=== PATIENT | male | born 1985 ===

== ENCOUNTER 2017-05-05 10:13 | Emergency (ER) | payer MEDICAID, OTHER ==
[2017-05-05 10:14] VITALS: BMI 38.7
[2017-05-05 10:18] VITALS: BP 148/92; PULSE 95; RESP 18; TEMP 99.2; O2SAT 96
[2017-05-05] MEDS ORDERED: Oxycodone/Acetaminophen 5/325 mg Tab PO STA (10:30)
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
--- NOTE | 2017-05-05 11:31 | RAD ---
PROCEDURE: Radiographs of the Left Shoulder HISTORY: Pain s/p fall COMPARISON: No prior. FINDINGS: BONES: Bone alignment and mineralization are normal. No acute fracture. JOINTS: Glenohumeral and acromioclavicular joints preserved. No osteoarthritis. SOFT TISSUES: Normal. OTHER FINDINGS: None. IMPRESSION: No acute fracture or dislocation.
--- NOTE | 2017-05-05 11:35 | RAD ---
PROCEDURE: Radiographs of the left humerus. HISTORY: pain s/p fall COMPARISON: None. FINDINGS: BONES: Bone alignment and mineralization are normal. No acute fracture or focal lesion. SOFT TISSUES: Normal. OTHER FINDINGS: None. IMPRESSION: No acute fracture or dislocation.
== END 2017-05-05 11:56 | disposition home or self-care (01) ==
LOC: MERGE 10:13 → H.ER 10:13
DX: S43.402A Unspecified sprain of left shoulder joint, initial encounter (principal); W19.XXXA Unspecified fall, initial encounter; Y99.0 Civilian activity done for income or pay

== ENCOUNTER 2017-11-09 17:21 | Inpatient (IN) | payer SELFPAY ==
[2017-11-09 17:21] VITALS: BMI 38.7
[2017-11-09] MEDS ORDERED: DiphenhydrAMINE 50 mg/ml Inj IVP STA (17:47)
[2017-11-09] MEDS ORDERED: Sodium Chloride 0.9% 1,000 ML IV STA (17:52)
[2017-11-09] MEDS ORDERED: DiphenhydrAMINE 50 mg/ml Inj ONE (17:53)
--- NOTE | 2017-11-09 18:08 | RAD ---
HISTORY: schizophrenia COMPARISON: No prior. FINDINGS: LUNGS: No active pulmonary disease. PLEURA: No significant pleural effusion identified, no pneumothorax apparent. CARDIOVASCULAR: Normal. OSSEOUS STRUCTURES: No significant abnormalities. VISUALIZED UPPER ABDOMEN: Normal. OTHER FINDINGS: None. IMPRESSION: No active disease.
[2017-11-09 18:13] LABS: BASO # 0.2 K/uL (0.0-0.2); EOS # 0.3 K/uL (0.0-0.7); EOS % 1.8 % (0.0-4.0); HEMOGLOBIN 13.5 g/dL (12.0-18.0); LYMPH # 4.2 K/uL (1.0-4.3); LYMPH % 25.2 % (20.0-40.0); MEAN CELL VOLUME 84.5 fl (80.0-94.0); MEAN CORPUSCULAR HEMOGLOBIN 28.4 pg (27.0-31.0); MEAN CORPUSCULAR HGB CONC 33.6 g/dL (33.0-37.0); MEAN PLATELET VOLUME 7.8 fl (7.2-11.7); MONO # 0.9 K/uL (0.0-0.8); MONO % 5.1 % (0.0-10.0); NEUT # 11.1 K/uL (1.8-7.0); NEUT % 66.9 % (50.0-75.0); RBC 4.73 Mil/uL (4.40-5.90); RED CELL DISTRIBUTION WIDTH 14.5 % (11.5-14.5); WHITE BLOOD COUNT 16.7 K/uL (4.8-10.8)
[2017-11-09 18:22] LABS: ACETAMINOPHEN < 10.0 ug/ml (10.0-30.0); SALICYLATE < 1.0 mg/dl
[2017-11-09 18:23] LABS: ALB/GLOB RATIO 1.3 (1.0-2.1); ALBUMIN 4.5 g/dL (3.5-5.0); ALT/SGPT 58 U/L (21-72); AST/SGOT 41 U/L (17-59); BLOOD UREA NITROGEN 10 mg/dl (9-20); CALCIUM 9.7 mg/dL (8.4-10.2); GFR AFRICAN-AMERICAN > 60; GFR NON-AFRICAN AMERICAN > 60
[2017-11-09 18:27] LABS: VALPROIC ACID < 10.0 ug/mL (50.0-100.0)
[2017-11-09 18:31] LABS: PARTIAL THROMBOPLASTIN TIME 29.9 Seconds (25.6-37.1)
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
[2017-11-09 21:56] LABS: BARBITURATES, UR NEGATIVE (NEGATIVE); BENZODIAZEPINES, UR NEGATIVE (NEGATIVE); OPIATES, UR NEGATIVE (NEGATIVE); PHENCYCLIDINE, UR NEGATIVE (NEGATIVE)
[2017-11-09] MEDS ORDERED: Sodium Chloride 0.9% 1,000 ML IV SCH (22:15)
[2017-11-10 00:33] VITALS: RESP 18
[2017-11-10] MEDS: Sodium Chloride 0.9% 1,000 ML IV SCH ×2 (04:09→08:56)
[2017-11-10 06:46] LABS: BASO # 0.1 K/uL (0.0-0.2); BASO % 0.8 % (0.0-2.0); EOS # 0.6 K/uL (0.0-0.7); EOS % 4.6 % (0.0-4.0); HEMOGLOBIN 12.4 g/dL (12.0-18.0); LYMPH # 2.7 K/uL (1.0-4.3); LYMPH % 21.8 % (20.0-40.0); MEAN CELL VOLUME 84.3 fl (80.0-94.0); MEAN CORPUSCULAR HEMOGLOBIN 28.4 pg (27.0-31.0); MEAN CORPUSCULAR HGB CONC 33.7 g/dL (33.0-37.0); MEAN PLATELET VOLUME 7.8 fl (7.2-11.7); MONO # 0.8 K/uL (0.0-0.8); MONO % 6.5 % (0.0-10.0); NEUT # 8.2 K/uL (1.8-7.0); NEUT % 66.3 % (50.0-75.0); NRBC % 0.1 % (0.0-0.0); RBC 4.35 Mil/uL (4.40-5.90); RED CELL DISTRIBUTION WIDTH 14.9 % (11.5-14.5); WHITE BLOOD COUNT 12.3 K/uL (4.8-10.8)
[2017-11-10 07:02] LABS: BLOOD UREA NITROGEN 15 mg/dl (9-20); CALCIUM 8.8 mg/dL (8.4-10.2); GFR AFRICAN-AMERICAN > 60; GFR NON-AFRICAN AMERICAN > 60
[2017-11-10] MEDS ORDERED: Enoxaparin 60 mg Syringe SC SCH (09:00)
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
--- NOTE | 2017-11-10 11:05 | CP.PCM.DIS ---
Provider - Provider Date of Admission: 11/09/17 21:09 Attending physician: Rosalia Nguyen DO Primary care physician: none Consults: psychiatry consult Time Spent in preparation of Discharge (in minutes): 10 Hospital Course - Lab Results Lab Results: Most Recent Lab Values WBC 12.3 K/uL (4.8-10.8) H 11/10/17 05:30 RBC 4.35 Mil/uL (4.40-5.90) L 11/10/17 05:30 Hgb 12.4 g/dL (12.0-18.0) 11/10/17 05:30 Hct 36.7 % (35.0-51.0) 11/10/17 05:30 MCV 84.3 fl (80.0-94.0) 11/10/17 05:30 MCH 28.4 pg (27.0-31.0) 11/10/17 05:30 MCHC 33.7 g/dL (33.0-37.0) 11/10/17 05:30 RDW 14.9 % (11.5-14.5) H 11/10/17 05:30 Plt Count 286 K/uL (130-400) 11/10/17 05:30 MPV 7.8 fl (7.2-11.7) 11/10/17 05:30 Neut % (Auto) 66.3 % (50.0-75.0) 11/10/17 05:30 Lymph % (Auto) 21.8 % (20.0-40.0) 11/10/17 05:30 Frontier % (Auto) 6.5 % (0.0-10.0) 11/10/17 05:30 Eos % (Auto) 4.6 % (0.0-4.0) H 11/10/17 05:30 Baso % (Auto) 0.8 % (0.0-2.0) 11/10/17 05:30 Neut # (Auto) 8.2 K/uL (1.8-7.0) H 11/10/17 05:30 Lymph # (Auto) 2.7 K/uL (1.0-4.3) 11/10/17 05:30 Frontier # (Auto) 0.8 K/uL (0.0-0.8) 11/10/17 05:30 Eos # (Auto) 0.6 K/uL (0.0-0.7) 11/10/17 05:30 Baso # (Auto) 0.1 K/uL (0.0-0.2) 11/10/17 05:30 PT 11.0 Seconds (9.8-13.1) 11/09/17 18:07 INR 1.0 (0.9-1.2) 11/09/17 18:07 APTT 29.9 Seconds (25.6-37.1) 11/09/17 18:07 Sodium 140 mmol/l (132-148) 11/10/17 05:30 Potassium 4.0 MMOL/L (3.6-5.0) 11/10/17 05:30 Chloride 103 mmol/L (98-107) 11/10/17 05:30 Carbon Dioxide 25 mmol/L (22-30) 11/10/17 05:30 Anion Gap 16 (10-20) 11/10/17 05:30 BUN 15 mg/dl (9-20) 11/10/17 05:30 Creatinine 0.7 mg/dl (0.8-1.5) L 11/10/17 05:30 Est GFR ( Amer) > 60 11/10/17 05:30 Est GFR (Non-Af Amer) > 60 11/10/17 05:30 POC Glucose (mg/dL) 113 mg/dL (65-110) H 11/09/17 17:49 Random Glucose 97 mg/dL (75-110) 11/10/17 05:30 Calcium 8.8 mg/dL (8.4-10.2) 11/10/17 05:30 Phosphorus 3.2 mg/dl (2.5-4.5) 11/09/17 18:07 Magnesium 1.9 MG/DL (1.6-2.3) 11/09/17 18:07 Total Bilirubin 0.5 mg/dl (0.2-1.3) 11/09/17 18:07 AST 41 U/L (17-59) 11/09/17 18:07 ALT 58 U/L (21-72) 11/09/17 18:07 Alkaline Phosphatase 99 U/L (38-126) 11/09/17 18:07 Total Creatine Kinase 211 U/L (55-170) H 11/10/17 05:30 Troponin I < 0.0120 ng/mL (0.00-0.120) 11/09/17 18:07 Total Protein 8.1 G/DL (6.3-8.2) 11/09/17 18:07 Albumin 4.5 g/dL (3.5-5.0) 11/09/17 18:07 Globulin 3.5 gm/dL (2.2-3.9) 11/09/17 18:07 Albumin/Globulin Ratio 1.3 (1.0-2.1) 11/09/17 18:07 Salicylates < 1.0 mg/dl 11/09/17 18:07 Urine Opiates Screen Negative (NEGATIVE) 11/09/17 21:28 Urine Methadone Screen Negative (NEGATIVE) 11/09/17 21:28 Acetaminophen < 10.0 ug/ml (10.0-30.0) L 11/09/17 18:07 Ur Barbiturates Screen Negative (NEGATIVE) 11/09/17 21:28 Valproic Acid < 10.0 ug/mL (50.0-100.0) L 11/09/17 18:07 Ur Phencyclidine Scrn Negative (NEGATIVE) 11/09/17 21:28 Ur Amphetamines Screen Negative (NEGATIVE) 11/09/17 21:28 U Benzodiazepines Scrn Negative (NEGATIVE) 11/09/17 21:28 U Oth Cocaine Metabols Negative (NEGATIVE) 11/09/17 21:28 U Cannabinoids Screen Negative (NEGATIVE) 11/09/17 21:28 Alcohol, Quantitative < 10 mg/dl (0-10) 11/09/17 18:07 - Hospital Course Hospital Course: 32 year old male with PMH of schizophrenia presented with worsening 2 day history of auditory hallucinations, constant, worsening, not ameliorated by medications he has been on. Patient took 12 tabs of Ambien last night and 4 tabs of Risperdal prior to arrival to ED today. Voices were telling him to stab himself in the throat, however he states the voices have since subsided. Pt also reports Ambien "works much better, relaxes my head." No PMD, receives medications at a Psych clinic in [facility] and [facility] [place]. In ED, pt was tachycardic, mildly tremulous, mild diaphoresis, not hyperthermic. Per Poison Control,he was placed under observation in telemetry and given Ativan PRN Pt is calm at this time, comfortable , hemodynamically stable psych consulted patient to be transferred to psych unit for management 1.Antipsychotic Overdose, Risperdal Concern for Neuroleptic Malignant Syndrome pt initially presented with Risperdal overdose, mild muscle "tightness" per ED, diaphoresis, stable BP Poison control recommended Ativan and monitoring overnight at present stable. Medically cleared for discharge to psych unit 2.Mild Rhabdomyolysis CK 243 on arrival, trend given IVF 3. Schizophrenia psych consult appreciated will d/c to psych Discharge Exam - Head Exam Head Exam: ATRAUMATIC, NORMOCEPHALIC - Eye Exam Eye Exam: EOMI, Normal appearance, PERRL Pupil Exam: NORMAL ACCOMODATION - ENT Exam ENT Exam: Mucous Membranes Moist, Normal Exam - Neck Exam Neck exam: Full Rom, Normal Inspection - Respiratory Exam Respiratory Exam: Clear to PA & Lateral, NORMAL BREATHING PATTERN. absent: Rales, Rhonchi, Wheezes - Cardiovascular Exam Cardiovascular Exam: REGULAR RHYTHM, RRR, +S1, +S2. absent: JVD - GI/Abdominal Exam GI & Abdominal Exam: Normal Bowel Sounds, Soft. absent: Guarding, Rebound, Tenderness - Rectal Exam Rectal Exam: Deferred - Extremities Exam Extremities exam: normal capillary refill, normal inspection, pedal pulses present - Back Exam Back exam: NORMAL INSPECTION - Neurological Exam Neurological exam: Alert, CN II-XII Intact, Oriented x3, Reflexes Normal - Psychiatric Exam Psychiatric exam: Anxious - Skin Skin Exam: Dry, Intact, Normal Color, Warm Discharge Plan - Follow Up Plan Condition: STABLE Disposition: DISCHARGE TO PSYCH HOSPITAL Patient education suggested?: Yes Instructions: Schizophrenia (DC)
[2017-11-10 12:08] VITALS: BP 104/66; PULSE 79; TEMP 98.7
[2017-11-10 15:47] VITALS: O2SAT 96
--- NOTE | 2017-11-10 17:45 | CARD ---
APPROVED REPORT EKG Measurement Heart [id number] MI 130P51 [id number] <Conclusion> Sinus tachycardia Possible Inferior infarct, age undetermined Abnormal ECG
--- NOTE | 2017-11-10 17:51 | CARD ---
APPROVED REPORT EKG Measurement Heart [id number] PA 140P43 [id number] <Conclusion> Normal sinus rhythm Normal ECG
== END 2017-11-10 14:30 | DRG 917 ==
LOC: H.ER 17:21 → H.ERHOLD 21:09 → H.TEL 11-10 00:11
PROVIDERS: ADMIT Student in an Organized Health Care Education/Training Program; ATTEND Student in an Organized Health Care Education/Training Program
DX: T43.501A Poisoning by unspecified antipsychotics and neuroleptics, accidental (unintentional), initial encounter (principal); G21.0 Malignant neuroleptic syndrome; M62.82 Rhabdomyolysis; F20.9 Schizophrenia, unspecified; F31.9 Bipolar disorder, unspecified; F41.9 Anxiety disorder, unspecified; F43.10 Post-traumatic stress disorder, unspecified; E78.5 Hyperlipidemia, unspecified; E78.00 Pure hypercholesterolemia, unspecified; G47.00 Insomnia, unspecified; Y92.009 Unspecified place in unspecified non-institutional (private) residence as the place of occurrence of the external cause; Z87.891 Personal history of nicotine dependence

== ENCOUNTER 2017-11-10 15:18 | Inpatient (IN) | payer OTHER ==
[2017-11-10 15:32] VITALS: BMI 44.9
[2017-11-10] MEDS ORDERED: Magnesium Hydroxide Susp 30 ml UD PO PRN (17:07)
[2017-11-10] MEDS ORDERED: DiphenhydrAMINE 50 mg/ml Inj IM PRN (17:07)
[2017-11-10] MEDS ORDERED: Alum-Mag Hydrox-Simethicone Susp (30 mL) PO PRN (17:07)
[2017-11-10] MEDS ORDERED: Divalproex 500 mg DR(BID formulation) PO SCH (17:30)
--- NOTE | 2017-11-10 18:27 | PCM.BM ---
<Angelo Espino - Last Filed: 11/10/17 18:25> Treatment Plan Problems - Problems identified on initial assessmt Hopelessness/Helplessness Date Initiated: 11/10/17 Time Initiated: 18:25 Assessment reference: NA Status: Active Treatment assets and liabiliti Patient Assests: adapts well, cooperative, motivated, self-reliant, ADL independent Patient Liabilities: medical problems, language/speech - Milieu Protocol Maintain good personal hygiene: every shift Encourage regular showers, every shift Remind patient to perform daily oral care, every shift Assist patient to perform ADL's Maintain personal safety: every shift Educate patient to report safety concerns to staff, every shift Monitor environment for contraband/sharps Medication safety: Monitor for expected outcome, potential side effects: every shift, Assess barriers to learning: every shift, Assess readiness for medication education: every shift <Chris Curtis - Last Filed: 11/12/17 17:37> Family Contact Family involvement: Family/SO is involved Family contact: Patient agrees to contact, Family has been contacted by patient Family contact name: Effie Medina - Sister [phone] Family contacted how many times per week?: 3 - Goals for Treatment Patient goals for treatment: Pt would like staff to adjust his medications to limit the intrusiveness of the images he sees. Pt is also very anxious and would like help with sleep. Discharge/Continuing Care - Education Needs Education Needs: Patient Medication, Patient Diagnosis/Disease Process, Patient Coping Skills, Patient Aftercare Safety Plan - Discharge Discharge Criteria: Tolerates medication w/o severe side effects, Free of Suicidal thoughts, Free of paranoid thoughts, Free of agitation, Normal sleep pattern, Reduction of target symptoms Discharge to:: Home, With Family <Marisela Saeed - Last Filed: 11/13/17 16:10> Family Contact - Outside Agency Agency 1 Care involvment: Following patient during stay, Information-sharing, Other Agency contact name: [facility] (OPS) Agency contact number: [phone] - Goals for Treatment Patient's family/SO goals for treatment: Patient to continue stabilization on 3NP through medication management and group/supportive therapy. Patient to be encouraged to attend groups regularly to promote self-awareness,compliance and improve insight, coping skills and self-esteem. Patient to be provided with referral for appropriate level of aftercare to reduce risk of future hospitalizations and ensure safety in the community. Discharge/Continuing Care - Treatment Team Participation Patient/Family/SO Statement: 11/13/17 16:11 Patient attended this mornings tx team and was able to engage in discussion regarding precursors to hospitalization and progress on 3NP. Pt. reported some improvement in anxiety and VH since admission but expressed experiencing disturbing/violent VH in the morning and in the evening. Pt. continues to deny AH. Pt. reported passive SI without plan or intent, explaining "I'm just frustrated with my illness." Pt. reported being inconsistently compliant with medications secondary to financial burden and "sometimes being too sick." Pt. was observed to be having bizarre, spastic hand movements through-out interaction. Pt. reported feeling restless and describing the movement as involuntary. Pts explained that these movement have not always been present but have become normal for patient, especially while taking medications. Psychoeducation regarding benefits of changing antipsychotics to better target VH and possibly address involuntary hand movements discussed at length. Pt. reported having been on 25mg of Seroquel in the past with minimal improvements. Benefits of a higher dose of Seroquel to replace current Abilify was discussed. Pt. agreeable. Pt. mostly withdrawn and isolative on 3NP but is cooperative and pleasant with staff. Was Patient/Family/SO present at Treatment Team Meeting: Yes <Alex Platt - Last Filed: 11/16/17 12:05> - Diagnosis (1) Hallucination Status: Acute Interventions: pharmacotherapy 11/16/17 12:05
[2017-11-10] MEDS: Divalproex 500 mg ER (ONCE DAILY formulation) PO SCH (18:28)
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
[2017-11-11 08:54] LABS: T4 6.87 ug/dl (5.5-11.0)
[2017-11-11] MEDS: Divalproex 500 mg ER (ONCE DAILY formulation) PO SCH ×2 (08:59→18:00)
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
[2017-11-12] MEDS: Divalproex 500 mg ER (ONCE DAILY formulation) PO SCH ×2 (09:12→17:16)
--- NOTE | 2017-11-12 17:00 | PCM.PYCHPN ---
Psychiatric Progress Note - Psychiatric Progress Note Patient seen today, length of contact: pt seen and evaluated . Patient Chief Complaint: Pt has remained very anxious and paranoid ,pacing and internally preoccupied and cant sleep at night and remains with poor insight and need further stabilization. Medication Change: Yes (will in rease ambien to 10 mg hs) Mental Status Examination - Cognitive Function Orientation: Person, Place - Mood Mood: Depressed, Anxious - Affect Affect: Flat - Formal Thought Process Formal Thought Process: Hallucinations, Paranoia, Flight of ideas Goal/Treatment Plan - Goal/Treatment Plan Progress Toward Problem(s) and Goals/Treatment Plan: Will further titrate abilify to 10 mg hs to stabilize the mood and titrate depakote by checking VPA level and engage pt in therapy Medical consult to address HTN and high cholesterol and other medical issues.
[2017-11-13] MEDS: Divalproex 500 mg ER (ONCE DAILY formulation) PO SCH ×2 (09:24→17:26)
--- NOTE | 2017-11-13 15:42 | PCM.PYCHPN ---
Psychiatric Progress Note - Psychiatric Progress Note Patient seen today, length of contact: pt evaluated discussed with team chart reviewed Patient Chief Complaint: I still have the bad visions when I wake up and when I go to sleep Problems Identified/Issues Discussed: pt evaluated with treatment team, presenting with anxious mood and affect, relates that to the fact that he continues to experience terrifying visual experiences, of people trying to hurt him, pt reported poor sleep with early insomnia, also reported increased anxiety possible akathisia with abilify discussed with pt discontinuing abilify and starting seroquel patient depressed , reported feeling hopeless because of his current medical condition , denied any current active suicidal ideation or plan , denied command hallucinations DSM 5 Symptoms Update: schizophrenia PTSD Medication Change: Yes (START SEROQUEL) Medical Record Reviewed: Yes Mental Status Examination - Cognitive Function Orientation: Person, Place Attention: WNL Concentration: WNL Association: WNL Fund of Knowledge: Poor Decription of patient's judgement and insights: PARTIAL INSIGHT , POOR JUDGMENT - Mood Mood: Depressed, Anxious - Affect Affect: Constricted, Flat - Formal Thought Process Formal Thought Process: Hallucinations, Paranoia, Circumstantial Psychotic Thoughts and Behaviors: VISUAL HALLUCIANTIONS - Suicidal Ideation Suicidal Ideation: No - Homicidal Ideation Homicidal Ideation: No Goal/Treatment Plan - Goal/Treatment Plan Need for Continued Stay: Severe depression anxiety, Discharge may exacerbated symptoms Progress Toward Problem(s) and Goals/Treatment Plan: DISCONTINUE ABILIFY START SEROQUEL 100MG QHS AND UPTITRATE GRADUALLY DEPAKOTE 500MG BID, FOLLOW UP WITH NEUROLOGY CONSULT GROUP AND SUPPORTIVE THERAPY
[2017-11-14] MEDS: Divalproex 500 mg ER (ONCE DAILY formulation) PO SCH ×2 (09:30→17:24)
--- NOTE | 2017-11-14 22:14 | PCM.PYCHPN ---
Psychiatric Progress Note - Psychiatric Progress Note Patient seen today, length of contact: pt evaluated discussed with team chart reviewed Patient Chief Complaint: was feeling nervous, hearing voices, paranoid, worried-now denies paranoia or hearing voices less anxious resting better with seroquel Problems Identified/Issues Discussed: alteration in cognition Medical Problems: per chart Diagnostic Results: per psychiatry per medicine per nursing per social work per chart pt seen by hospitalist DSM 5 Symptoms Update: improving psychosis lessening akithesia Medication Change: No Medical Record Reviewed: Yes Consults ordered or reviewed: pt seen by hospitalist Mental Status Examination - Cognitive Function Orientation: Person, Place Attention: WNL Concentration: WNL Association: WNL Fund of Knowledge: Poor Decription of patient's judgement and insights: impaired - Mood Mood: Depressed, Anxious - Affect Affect: Constricted, Flat - Formal Thought Process Formal Thought Process: Paranoia, Circumstantial - Suicidal Ideation Suicidal Ideation: No - Homicidal Ideation Homicidal Ideation: No Goal/Treatment Plan - Goal/Treatment Plan Need for Continued Stay: Severe depression anxiety, Discharge may exacerbated symptoms Progress Toward Problem(s) and Goals/Treatment Plan: inpt milieu adjust meds per status access to yoruba speaking staff prn discharge planning in progress Estimated Date of D/C: 11/16/17 - Smoking Cessation Smoking Cessation Initiated: No Reason for not providing: defers
[2017-11-15] MEDS: Divalproex 500 mg ER (ONCE DAILY formulation) PO SCH ×2 (08:32→17:36)
--- NOTE | 2017-11-15 15:07 | PCM.PYCHPN ---
Psychiatric Progress Note - Psychiatric Progress Note Patient seen today, length of contact: pt evaluated discussed with team chart reviewed Patient Chief Complaint: I do not get the visions all the time Problems Identified/Issues Discussed: pt evaluated , reported feeling less anxious, observed to be less stiff and no involuntary movements noted , pt reported that the visual hallucinations are much less and very infrequent denied any current command hallucinations pt reported continues to have insomnia, sleeps only 5hours a night, discussed with pt increasing seroquel gradual, pt noted to be less guarded, and with brighter affect denied any current suicidal or homicidal ideation DSM 5 Symptoms Update: schizophrenia Medication Change: Yes (increase seroquel) Medical Record Reviewed: Yes Mental Status Examination - Cognitive Function Orientation: Person, Place Memory: Intact Attention: WNL Concentration: WNL Association: WNL Fund of Knowledge: Poor Decription of patient's judgement and insights: partial insight fair judgment - Mood Mood: Depressed, Anxious - Affect Affect: Constricted, Flat - Speech Speech: Appropriate - Formal Thought Process Formal Thought Process: Paranoia, Circumstantial Psychotic Thoughts and Behaviors: pt reported clearing off of the visual halluciantions - Suicidal Ideation Suicidal Ideation: No - Homicidal Ideation Homicidal Ideation: No Goal/Treatment Plan - Goal/Treatment Plan Need for Continued Stay: Severe depression anxiety, Discharge may exacerbated symptoms Progress Toward Problem(s) and Goals/Treatment Plan: increase SEROQUEL 300MG QHS DEPAKOTE 500MG BID, GROUP AND SUPPORTIVE THERAPY Estimated Date of D/C: 11/16/17
[2017-11-15] MEDS: QUEtiapine 300 MG TABLET PO SCH (21:03)
[2017-11-16] MEDS: Divalproex 500 mg ER (ONCE DAILY formulation) PO SCH ×2 (12:25→17:03)
--- NOTE | 2017-11-16 14:08 | PCM.PYCHPN ---
Psychiatric Progress Note - Psychiatric Progress Note Patient seen today, length of contact: pt evaluated discussed with team chart reviewed Patient Chief Complaint: I am better Problems Identified/Issues Discussed: pt evaluated , reported better sleep , feeling less anxious, observed to be less stiff and no involuntary movements noted , pt reported that the visual hallucinations disappeared, denied any current command hallucinations no side effects with the increase in seroquel, brighter mood and affect denied any current suicidal or homicidal ideation DSM 5 Symptoms Update: schizophrenia Medication Change: No (increase seroquel) Medical Record Reviewed: Yes Mental Status Examination - Cognitive Function Orientation: Person, Place Memory: Intact Attention: WNL Concentration: WNL Association: WNL Fund of Knowledge: Poor Decription of patient's judgement and insights: partial insight fair judgment - Mood Mood: Anxious - Affect Affect: Constricted, Flat - Speech Speech: Appropriate - Formal Thought Process Formal Thought Process: Circumstantial Psychotic Thoughts and Behaviors: pt reported clearing off of the visual halluciantions - Suicidal Ideation Suicidal Ideation: No - Homicidal Ideation Homicidal Ideation: No Goal/Treatment Plan - Goal/Treatment Plan Need for Continued Stay: Severe depression anxiety, Discharge may exacerbated symptoms Progress Toward Problem(s) and Goals/Treatment Plan: SEROQUEL 300MG QHS DEPAKOTE 500MG BID, GROUP AND SUPPORTIVE THERAPY Estimated Date of D/C: 11/17/17
[2017-11-16] MEDS: QUEtiapine 300 MG TABLET PO SCH (22:10)
[2017-11-17] MEDS: Divalproex 500 mg ER (ONCE DAILY formulation) PO SCH (08:59)
[2017-11-17 09:12] VITALS: BP 131/81; PULSE 78; RESP 18; TEMP 97.7
--- NOTE | 2017-11-17 13:03 | PCM.PYCHDC ---
Mental Status Examination - Mental Status Examination Orientation: Person, Place, Situation Memory: Intact Mood: Neutral Affect: Broad Speech: Appropriate Attention: WNL Concentration: WNL Association: WNL Fund of Knowledge: WNL Formal Thought Process: No Impairment Description of patient's judgement and insight: partial insight fair judgment Psychotic Thoughts and Behaviors: pt on discharge denied any perceptual disturbances, non elicited Suicidal Ideation: No Current Homicidal Ideation?: No Discharge Summary - Discharge Note Reason for Hospitalization: This is the ist admission for this 32 yr old male with h/o depression since age 18 and also seeing the visions of people transfered from because of suicidal attempt by overdose on risperdal and ambien .pt says that he sees people coming to his vision and feels trapped and wants to get rid of these visions and he overdosed and attempted suicide and still sees the visions little bit and wants to not see them and will take meds to get better.pt feels nervous about it and pr also hears voices of these vision as well .pt was given depakote,olanzapine and prozac and did not help him much.pt was given risperdal recently by his regular doctor. Consultations:: List each consultation separately and include: 1. Reason for request. 2. Findings. 3. Follow-up Summary of Hospital Course include:: 1. Description of specific treatment plan utilized for patients during their course of treatmen. 2. Summarize the time- course for resolution of acute symptoms and/or regressed behaviors. 3. Describe issues identified and worked on during hospitalization. 4. Describe medication utilized. 5. Describe medical problems identified and treated. 6. Reassessment of suicide risk Summary of Hospital Course: pt on admission was started on abilify increased to 10mg , pt however complained of involuntary movements and increased anxiety , possible akathisia abilify was discontinued and pt was started on seroquel which was uptitrated gradually to 300mg , pt was continued on depakote 500mg bid pt gradually reported clearing off of the auditory and visual hallucinations, reported less anxiety CBT and group therapy provided , no reported side effects of medications on discharge pt mental status was stable denied any current suicidal or homicidal ideations denied any perceptual disturbances - Diagnosis (1) Hallucination Current Visit: No Status: Acute - Final Diagnosis (DSM 5) Condition upon Discharge: GOOD DSM 5: schizophrenia Disposition: HOME/ ROUTINE Follow-up Treatment Plan: SEROQUEL 300MG QHS DEPAKOTE 500MG BID, GROUP AND SUPPORTIVE THERAPY Prescriptions/Medication Reconciliation: Divalproex [Depakote ER(ONCE DAILY)] 500 mg PO BID 30 Days #60 ter QUEtiapine [SEROquel] 300 mg PO HS 30 Days #30 tab - Antipsychotic Medications Pt discharged on 2 or more routine antipsychotic medications: No
== END 2017-11-17 12:57 | disposition home or self-care (01) | DRG 430 ==
LOC: H.PSYCH 15:32
PROVIDERS: ADMIT Psychiatry & Neurology Psychiatry; ATTEND Psychiatry & Neurology Psychiatry
PROC: GZHZZZZ Group Psychotherapy (ICD-10-PCS; principal; 2017-11-10)
PROC: GZ58ZZZ Individual Psychotherapy, Cognitive-Behavioral (ICD-10-PCS; 2017-11-10)
DX: F25.9 Schizoaffective disorder, unspecified (principal); F43.10 Post-traumatic stress disorder, unspecified; G47.00 Insomnia, unspecified; E78.00 Pure hypercholesterolemia, unspecified; I10 Essential (primary) hypertension; Z91.5 Personal history of self-harm; F17.210 Nicotine dependence, cigarettes, uncomplicated

== ENCOUNTER 2018-02-04 04:39 | Inpatient (IN) | payer OTHER, SELFPAY ==
[2018-02-04 04:39] VITALS: BMI 44.9
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
[2018-02-04 06:12] LABS: MEAN CELL VOLUME 84.4 fl (80.0-94.0); MEAN CORPUSCULAR HEMOGLOBIN 28.3 pg (27.0-31.0); MEAN CORPUSCULAR HGB CONC 33.5 g/dL (33.0-37.0); RBC 4.61 Mil/uL (4.40-5.90); RED CELL DISTRIBUTION WIDTH 14.5 % (11.5-14.5); WHITE BLOOD COUNT 11.9 K/uL (4.8-10.8)
[2018-02-04 06:20] LABS: ALB/GLOB RATIO 1.3 (1.0-2.1); ALT/SGPT 29 U/L (21-72); AST/SGOT 21 U/L (17-59); BLOOD UREA NITROGEN 17 mg/dl (9-20); CALCIUM 9.3 mg/dL (8.4-10.2); GFR AFRICAN-AMERICAN > 60; GFR NON-AFRICAN AMERICAN > 60
--- NOTE | 2018-02-04 07:34 | ED PDOC ---
- Laboratory Results Result Diagrams: 02/04/18 06:07 02/04/18 06:07 - ECG ECG: Positive for: Interpreted By Me, Viewed By Me ECG Rhythm: Positive for: Normal QRS, Normal ST Segment, Sinus Rhythm O2 Sat by Pulse Oximetry: 98 (RA) Pulse Ox Interpretation: Normal - Progress ED Course And Treament: 825: Stable. AAOx3. Pain free. Tolerated PO. Crisis saw pt. Will admit. Medically stable at this time for admit to psych. Medical Decision Making Medical Decision Making: Patient signed out to provider at [address] Bullock pending labs for medical clearance and crisis evaluation. ------ Documented by Catherine Rodriguez acting as a scribe for John Paul Granados MD. All medical record entries made by the Scribe were at my direction and personally dictated by me. I have reviewed the chart and agree that the record accurately reflects my personal performance of the history, physical exam, medical decision making, and the department course for this patient. I have also personally directed, reviewed, and agree with the discharge instructions and disposition. Disposition - Clinical Impression Clinical Impression: Schizophrenia - POA Present On Arrival: None - Disposition Disposition: Admitted as In-Patient Disposition Time: 08:26 Condition: FAIR
--- NOTE | 2018-02-04 07:53 | CARD ---
APPROVED REPORT Date of service: 02/04/2018 EKG Measurement Heart [id number] <Conclusion> Normal sinus rhythm Normal ECG
[2018-02-04 08:17] VITALS: O2SAT 98
[2018-02-04 09:48] LABS: SQUAMOUS EPITHIAL < 1 /hpf (0-5); URINE BILIRUBIN NEGATIVE (NEGATIVE); URINE BLOOD NEGATIVE (NEGATIVE); URINE CLARITY CLEAR (Clear); URINE COLOR YELLOW (YELLOW); URINE GLUCOSE (UA) NEG (Normal); URINE LEUKOCYTE ESTERASE NEG Leu/uL (Negative); URINE PROTEIN NEGATIVE (NEGATIVE); URINE UROBILINOGEN 0.2-1.0 mg/dL (0.2-1.0)
[2018-02-04 09:51] LABS: BARBITURATES, UR NEGATIVE (NEGATIVE); BENZODIAZEPINES, UR NEGATIVE (NEGATIVE); OPIATES, UR NEGATIVE (NEGATIVE); PHENCYCLIDINE, UR NEGATIVE (NEGATIVE)
[2018-02-04] MEDS ORDERED: DiphenhydrAMINE 50 mg/ml Inj IM PRN (12:21)
[2018-02-04] MEDS ORDERED: Magnesium Hydroxide Susp 30 ml UD PO PRN (12:21)
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
[2018-02-04] MEDS: Divalproex 500 mg DR(BID formulation) PO SCH ×2 (12:44→17:18)
--- NOTE | 2018-02-04 15:32 | PCM.BM ---
<Nereyda Murray - Last Filed: 02/04/18 15:30> Treatment Plan Problems - Problems identified on initial assessmt Hopelessness/Helplessness Date Initiated: 02/04/18 Time Initiated: 15:30 Assessment reference: NA Status: Active Altered Sleep Pattern Date Initiated: 02/04/18 Time Initiated: 15:35 Assessment reference: NA Status: Active Medication nonadherence Date Initiated: 02/04/18 Time Initiated: 15:35 Assessment reference: NA Status: Active Social Isolation Date Initiated: 02/04/18 Time Initiated: 15:36 Assessment reference: NA Status: Active Treatment assets and liabiliti Patient Assests: adapts well, cooperative, motivated, self-reliant, ADL independent, physically healthy Patient Liabilities: poor support system, other (Homeless) - Milieu Protocol Maintain good personal hygiene: daily Encourage regular showers, every shift Remind patient to perform daily oral care, every shift Assist patient to perform ADL's Conduct patient checks and document Observation sheet: Q15 minutes Maintain personal safety: every shift Educate patient to report safety concerns to staff, every shift Monitor environment for contraband/sharps Medication safety: Monitor for expected outcome, potential side effects: every shift, Assess barriers to learning: every shift, Assess readiness for medication education: every shift Milieu Narrative: START SEROQUEL 100MG QHS INCREASE GRADUALLY depakote 500mg bid for seizures neurontin 100m g tid for anxiety will consider adding SSRI for PTSD and obsessive disorder group and suppoerive therapy Discharge/Continuing Care - Treatment Team Participation Patient/Family/SO Statement: START SEROQUEL 100MG QHS INCREASE GRADUALLY depakote 500mg bid for seizures neurontin 100m g tid for anxiety will consider adding SSRI for PTSD and obsessive disorder group and suppoerive therapy <Marisela Saeed - Last Filed: 02/05/18 16:09> Treatment assets and liabiliti Patient Assests: adapts well, cooperative, resourceful, negotiates basic needs, cognitively intact Patient Liabilities: relationship conflicts, medical problems Family Contact Family involvement: Famliy/SO not involved Family contact: Patient declines to allow family contact at present - Goals for Treatment Patient goals for treatment: Patient to continue stabilization on 3NP through medication management and group/supportive therapy to address sxs of depression/ anxiety, manage PTSD sxs and eliminate SI. Patient to be encouraged to attend groups regularly to promote self-awareness,reality testing, and improve insight , compliance, coping skills and self-esteem. Patient to be provided with referral for appropriate level of aftercare to reduce risk of future hospitalizations and ensure safety in the community. Discharge/Continuing Care - Education Needs Education Needs: Patient Medication, Patient Diagnosis/Disease Process, Patient Coping Skills, Patient Community resources, Patient Aftercare Safety Plan - Discharge Discharge Criteria: Tolerates medication w/o severe side effects, Free of Suicidal thoughts, Free of paranoid thoughts, Normal sleep pattern, Reduction of target symptoms, Other (decrease VH/intrusive images/nightmares) Discharge to:: Penitentiary, Other ([facility]) - Treatment Team Participation Patient/Family/SO Statement: 02/05/18 16:13 Pt. attended tx team this morning to discuss tx goals and progress on 3NP. AOX4 with constricted affect and poor eye contact. Pt. disheveled with poor ADLs. Pt. presents as depressed, anxious. Speech is somewhat underproductive: slow, quiet. Pt. appears internally preoccupied. Insight/focus limited. Coping skills/ Judgment impaired. Pt. continues to report distress secondary to bad images but denies SI/HI and is able to contract for safety. Pt. somewhat suspicious on approach but is easily engaged, cooperative and receptive to feedback. Pt. withdrawn and isolative on 3NP. Pt. to continue stabilization on 3NP through medication management and group/supportive therapy. Pt. to be provided with referral for appropriate level of aftercare. Discussed with Family/SO: No Was Patient/Family/SO present at Treatment Team Meeting: Yes <Alex Platt - Last Filed: 02/13/18 08:58> - Diagnosis (1) Hallucination Status: Acute Interventions: pharmacotherapy 02/13/18 08:58
--- NOTE | 2018-02-04 17:57 | CP.PCM.CON ---
History of Present Illness - History of Present Illness History of Present Illness: 32 yo male with history of schizoaffective do admitted to psyche unit because visual hallucination of people. Review of Systems - Review of Systems All systems: reviewed and no additional remarkable complaints except (aside from those mentioned above, 12 point system review were negative by me) Past Patient History - Infectious Disease Hx of Infectious Diseases: None - Tetanus Immunizations Tetanus Immunization: Unknown - Past Social History Smoking Status: Never Smoked Chewing Tobacco Use: No Cigar Use: No Alcohol: None Drugs: Denies - CARDIAC Hx Cardiac Disorders: No Hx Hypertension: Yes - PULMONARY Hx Tuberculosis: No - NEUROLOGICAL HX Cerebrovascular Accident: No Hx Seizures: No - HEENT Hx HEENT Problems: No - RENAL Hx Chronic Kidney Disease: No - ENDOCRINE/METABOLIC Hx Endocrine Disorders: No - HEMATOLOGICAL/ONCOLOGICAL Hx Cancer: No Hx Human Immunodeficiency Virus (HIV): No - INTEGUMENTARY Hx Dermatological Problems: No - MUSCULOSKELETAL/RHEUMATOLOGICAL Hx Fractures: Yes (left shoulder) - GASTROINTESTINAL Hx Gastrointestinal Disorders: No - GENITOURINARY/GYNECOLOGICAL Hx Sexually Transmitted Disorders: No - PSYCHIATRIC Hx Substance Use: No - SURGICAL HISTORY Hx Surgeries: No - ANESTHESIA Hx Anesthesia: No Hx Anesthesia Reactions: No Hx Malignant Hyperthermia: No Meds Allergies/Adverse Reactions: Allergies Allergy/AdvReac Type Severity Reaction Status Date / Time No Known Allergies Allergy Verified 06/16/14 10:17 - Medications Medications: Current Medications Acetaminophen (Tylenol 325mg Tab) 650 mg PO Q4 PRN PRN Reason: Pain, moderate (4-7) Diphenhydramine HCl (Benadryl) 50 mg IM Q6 PRN PRN Reason: Extrapyramidal S/S Unable PO Diphenhydramine HCl (Benadryl) 50 mg PO Q6 PRN PRN Reason: Extrapyramidal Symptoms Divalproex Sodium (Depakote Dr(*Bid*)) 500 mg PO BID [facility] Last Admin: 18 17:18 Dose: 500 mg Gabapentin (Neurontin) 100 mg PO TID [facility] Last Admin: 18 17:18 Dose: 100 mg Haloperidol (Haldol) 5 mg PO Q4 PRN PRN Reason: Agitation Haloperidol Lactate (Haldol) 5 mg IM Q4 PRN PRN Reason: Agitation, Unable to Take PO Lorazepam (Ativan) 1 mg PO TID PRN PRN Reason: Anxiety Magnesium Hydroxide (Milk Of Magnesia) 30 ml PO HS PRN PRN Reason: Constipation Quetiapine Fumarate (Seroquel) 100 mg PO HS [place] Physical Exam - Constitutional Appears: No Acute Distress - Head Exam Head Exam: ATRAUMATIC - Eye Exam Eye Exam: absent: Scleral icterus - ENT Exam ENT Exam: Mucous Membranes Moist - Neck Exam Neck exam: Negative for: Meningismus - Respiratory Exam Respiratory Exam: absent: Rales, Rhonchi, Wheezes, Respiratory Distress - Cardiovascular Exam Cardiovascular Exam: REGULAR RHYTHM, +S1, +S2 - GI/Abdominal Exam GI & Abdominal Exam: Soft. absent: Tenderness - Rectal Exam Rectal Exam: Deferred - Extremities Exam Extremities exam: Negative for: pedal edema - Back Exam Back exam: NORMAL INSPECTION - Neurological Exam Neurological exam: Alert, Oriented x3 - Psychiatric Exam Psychiatric exam: Normal Affect - Skin Skin Exam: Dry, Intact Results - Vital Signs Recent Vital Signs: Last Vital Signs Temp 97.5 F L 02/04/18 17:45 Pulse 76 02/04/18 17:45 Resp 18 02/04/18 17:45 BP 129/78 02/04/18 17:45 Pulse Ox 98 02/04/18 08:26 - Labs Result Diagrams: 02/04/18 06:07 02/04/18 06:07 Labs: Laboratory Results - last 24 hr 02/04/18 02/04/18 02/04/18 06:07 06:07 09:10 WBC 11.9 H RBC 4.61 Hgb 13.0 Hct 38.9 MCV 84.4 MCH 28.3 MCHC 33.5 RDW 14.5 Plt Count 287 Sodium 140 Potassium 4.0 Chloride 101 Carbon Dioxide 28 Anion Gap 15 BUN 17 Creatinine 0.7 L Est GFR ( Amer) > 60 Est GFR (Non-Af Amer) > 60 Random Glucose 99 Calcium 9.3 Total Bilirubin 0.4 AST 21 ALT 29 Alkaline Phosphatase 94 Total Protein 7.2 Albumin 4.0 Globulin 3.2 Albumin/Globulin Ratio 1.3 Urine Color Urine Clarity Urine pH Ur Specific [place] Urine Protein Urine Glucose (UA) Urine Ketones Urine Blood Urine Nitrate Urine Bilirubin Urine Urobilinogen Ur Leukocyte Esterase Urine Microscopic WBC Ur Squamous Epith Cells Urine Opiates Screen Negative Urine Methadone Screen Negative Ur Barbiturates Screen Negative Ur Phencyclidine Scrn Negative Ur Amphetamines Screen Negative U Benzodiazepines Scrn Negative U Oth Cocaine Metabols Negative U Cannabinoids Screen Negative Alcohol, Quantitative < 10 02/04/18 09:10 WBC RBC Hgb Hct MCV MCH MCHC RDW Plt Count Sodium Potassium Chloride Carbon Dioxide Anion Gap BUN Creatinine Est GFR ( Amer) Est GFR (Non-Af Amer) Random Glucose Calcium Total Bilirubin AST ALT Alkaline Phosphatase Total Protein Albumin Globulin Albumin/Globulin Ratio Urine Color Yellow Urine Clarity Clear Urine pH 6.0 Ur Specific [place] 1.015 Urine Protein Negative Urine Glucose (UA) Neg Urine Ketones Trace Urine Blood Negative Urine Nitrate Negative Urine Bilirubin Negative Urine Urobilinogen 0.2-1.0 Ur Leukocyte Esterase Neg Urine Microscopic WBC 1 Ur Squamous Epith Cells < 1 Urine Opiates Screen Urine Methadone Screen Ur Barbiturates Screen Ur Phencyclidine Scrn Ur Amphetamines Screen U Benzodiazepines Scrn U Oth Cocaine Metabols U Cannabinoids Screen Alcohol, Quantitative Assessment & Plan (1) Schizophrenia Status: Acute Comment: psyche is managing
[2018-02-05 08:25] LABS: T4 7.95 ug/dl (5.5-11.0)
[2018-02-05] MEDS: Divalproex 500 mg DR(BID formulation) PO SCH ×2 (08:56→16:11)
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
[2018-02-06] MEDS: Divalproex 500 mg DR(BID formulation) PO SCH (08:44)
--- NOTE | 2018-02-06 15:59 | PCM.PYCHPN ---
Psychiatric Progress Note - Psychiatric Progress Note Patient seen today, length of contact: pt evaluated discussed with team chart reviewed Patient Chief Complaint: I am very tired Problems Identified/Issues Discussed: pt evaluated , seen in bed, low energy low motivation, isolating himself in his room, anhedonic, dysphoric, not interacting with staff or other peers cbt provided , encouraged pt to attend groups, pt continues to report intrusive visions and scenes of scary themes, discussed increasing seroquel gradually also discussed changing depakote to night time due to increased sedation pt denied command halluciantions, denied suicidal or homicidal ideation Medical Problems: multiple hospitalizations, hx of non compliance DSM 5 Symptoms Update: schizoaffective disorder depressed Medication Change: Yes (increase seroquel) Medical Record Reviewed: Yes Mental Status Examination - Cognitive Function Orientation: Person, Place, Situation Attention: WNL Concentration: Poor Association: WNL Fund of Knowledge: Poor Decription of patient's judgement and insights: partial insight , poor judgment - Mood Mood: Depressed, Anxious - Affect Affect: Constricted - Speech Speech: Soft - Formal Thought Process Formal Thought Process: Delusions, Circumstantial Psychotic Thoughts and Behaviors: pt reported intrusive thoughts and visual hallucinations - Suicidal Ideation Suicidal Ideation: No - Homicidal Ideation Homicidal Ideation: No Goal/Treatment Plan - Goal/Treatment Plan Need for Continued Stay: Remain at risks for inpatient hospitalization, Severe depression anxiety, Discharge may exacerbated symptoms, Failed transitioning Progress Toward Problem(s) and Goals/Treatment Plan: seroquel 200mg qhs and up titrate gradually depakote 500mg bid for seizures neurontin 100m g tid for anxiety will consider adding SSRI for PTSD and obsessive disorder group and supportive therapy
[2018-02-06] MEDS ORDERED: Divalproex 500 mg DR(BID formulation) PO SCH (22:00)
--- NOTE | 2018-02-07 13:32 | PCM.PYCHPN ---
Psychiatric Progress Note - Psychiatric Progress Note Patient seen today, length of contact: pt evaluated discussed with team chart reviewed Patient Chief Complaint: I still have the visions at night Problems Identified/Issues Discussed: pt evaluated ,continues to be depressed anhedonic, low energy and poor motivation , discussed with pt crosstapering seroquel with risperidone for less sedative effect, pt continues to report intrusive visions, mainly at night, denied any current auditory hallucinations, encouraged pt to attend groups, and participate in treatment will start remeron for depression also will add neurontin for anxiety pt denied command hallucinations, denied suicidal or homicidal ideation Medical Problems: multiple hospitalizations, hx of non compliance DSM 5 Symptoms Update: schizoaffective disorder depressed PTSD Medication Change: Yes (start risperidone ) Medical Record Reviewed: Yes Mental Status Examination - Cognitive Function Orientation: Person, Place, Situation Attention: WNL Concentration: Poor Association: WNL Fund of Knowledge: Poor Decription of patient's judgement and insights: partial insight , poor judgment - Mood Mood: Depressed, Anxious - Affect Affect: Constricted - Speech Speech: Soft - Formal Thought Process Formal Thought Process: Delusions, Circumstantial Psychotic Thoughts and Behaviors: pt reported intrusive thoughts and visual hallucinations - Suicidal Ideation Suicidal Ideation: No - Homicidal Ideation Homicidal Ideation: No Goal/Treatment Plan - Goal/Treatment Plan Need for Continued Stay: Remain at risks for inpatient hospitalization, Severe depression anxiety, Discharge may exacerbated symptoms, Failed transitioning Progress Toward Problem(s) and Goals/Treatment Plan: DISCONTINUE seroquel, start risperidone 1mg bid depakote 1000 mg qhs neurontin 100m g tid for anxiety remeron 7.5mg qhs group and supportive therapy
[2018-02-07] MEDS: Divalproex 500 mg DR(BID formulation) PO SCH (21:09)
--- NOTE | 2018-02-08 14:02 | PCM.PYCHPN ---
Psychiatric Progress Note - Psychiatric Progress Note Patient seen today, length of contact: pt evaluated discussed with team chart reviewed Patient Chief Complaint: I still have bad visions and thoughts at night Problems Identified/Issues Discussed: pt evaluated ,continues to be depressed , dysphoric, low motivation, not attending to personal hygiene , reported feeling down, pt reported decreased sleep at night with intrusive visions of bad scenes, discussed with pt increasing dose of risperidone and remeron, encouraged pt to attend groups and participate in treatment pt denied command hallucinations, denied suicidal or homicidal ideation Medical Problems: multiple hospitalizations, hx of non compliance DSM 5 Symptoms Update: schizoaffective disorder depressed Medication Change: Yes (increase risperidone ) Medical Record Reviewed: Yes Mental Status Examination - Cognitive Function Orientation: Person, Place, Situation Attention: WNL Concentration: Poor Association: WNL Fund of Knowledge: Poor Decription of patient's judgement and insights: partial insight , poor judgment - Mood Mood: Depressed, Anxious - Affect Affect: Constricted - Speech Speech: Soft - Formal Thought Process Formal Thought Process: Delusions, Circumstantial Psychotic Thoughts and Behaviors: pt reported intrusive thoughts and visual hallucinations - Suicidal Ideation Suicidal Ideation: No - Homicidal Ideation Homicidal Ideation: No Goal/Treatment Plan - Goal/Treatment Plan Need for Continued Stay: Remain at risks for inpatient hospitalization, Severe depression anxiety, Discharge may exacerbated symptoms, Failed transitioning Progress Toward Problem(s) and Goals/Treatment Plan: increase risperidone 1mg daily and 2mg qhs depakote 1000 mg qhs for seizure disorder neurontin 100m g tid for anxiety remeron 7.5mg qhs group and supportive therapy
[2018-02-08] MEDS: Divalproex 500 mg DR(BID formulation) PO SCH (21:11)
--- NOTE | 2018-02-09 15:46 | PCM.PYCHPN ---
Psychiatric Progress Note - Psychiatric Progress Note Patient seen today, length of contact: pt evaluated discussed with team chart reviewed Patient Chief Complaint: I feel anxious Problems Identified/Issues Discussed: pt evaluated ,continues to be isolating himself in his room, low motivation and low energy , continues to report unpleasent intrusive scenes discussed increasing risperidone and lexapro gradually , encouraged pt to attend groups and participate in treatemnt pt denied command hallucinations, denied suicidal or homicidal ideation Medical Problems: multiple hospitalizations, hx of non compliance DSM 5 Symptoms Update: schizoaffective disorder depressed Medication Change: Yes (increase risperidone ) Medical Record Reviewed: Yes Mental Status Examination - Cognitive Function Orientation: Person, Place, Situation Attention: WNL Concentration: WNL Association: WNL Fund of Knowledge: Poor Decription of patient's judgement and insights: partial insight , poor judgment - Mood Mood: Depressed, Anxious - Affect Affect: Constricted - Speech Speech: Soft - Formal Thought Process Formal Thought Process: Delusions, Circumstantial Psychotic Thoughts and Behaviors: pt reported intrusive thoughts and visual hallucinations - Suicidal Ideation Suicidal Ideation: No - Homicidal Ideation Homicidal Ideation: No Goal/Treatment Plan - Goal/Treatment Plan Need for Continued Stay: Remain at risks for inpatient hospitalization, Severe depression anxiety, Discharge may exacerbated symptoms, Failed transitioning Progress Toward Problem(s) and Goals/Treatment Plan: risperidone 1mg daily and 2mg qhs depakote 1000 mg qhs for seizure disorder / follow up on depakote level neurontin 100m g tid for anxiety lexapro 10mg daily group and supportive therapy
[2018-02-09] MEDS: Divalproex 500 mg DR(BID formulation) PO SCH (21:07)
--- NOTE | 2018-02-10 17:18 | PCM.PYCHPN ---
Psychiatric Progress Note - Psychiatric Progress Note Patient seen today, length of contact: pt evaluated discussed with team chart reviewed Patient Chief Complaint: reports feeling calmer during day, less seeing vision of people, at night increased repetitive thoughts. seen walking in hallway. staff report pt somewhat isolative. adherent with treatment denies side effects rx Problems Identified/Issues Discussed: alteration in cognition alteration in sleep Medical Problems: per chart Diagnostic Results: per psychiatry per medicine per nursing per social work per recreational therapy DSM 5 Symptoms Update: somewhat improving anxiety, visual hallucination, insomnia Medication Change: Yes (increase risperidone ) Medical Record Reviewed: Yes Consults ordered or reviewed: followed by hospitalist Mental Status Examination - Cognitive Function Orientation: Person, Place, Situation Attention: WNL Concentration: WNL Association: WNL Fund of Knowledge: Poor - Mood Mood: Depressed, Anxious - Affect Affect: Constricted - Speech Speech: Soft - Formal Thought Process Formal Thought Process: Delusions, Circumstantial - Suicidal Ideation Suicidal Ideation: No - Homicidal Ideation Homicidal Ideation: No Goal/Treatment Plan - Goal/Treatment Plan Need for Continued Stay: Remain at risks for inpatient hospitalization, Severe depression anxiety, Discharge may exacerbated symptoms, Failed transitioning Progress Toward Problem(s) and Goals/Treatment Plan: inpt milieu macedonian spoken increase trazodone to 150mg po hs assess for possible s/s of serotonin syndrome lexapro/trazodone/risperdal discharge planning in progress Estimated Date of D/C: 02/14/18 - Smoking Cessation Smoking Cessation Initiated: No Reason for not providing: denies
[2018-02-10] MEDS: Divalproex 500 mg DR(BID formulation) PO SCH (21:21)
[2018-02-11] MEDS: Divalproex 500 mg DR(BID formulation) PO SCH (21:22)
--- NOTE | 2018-02-12 14:41 | PCM.PYCHPN ---
Psychiatric Progress Note - Psychiatric Progress Note Patient seen today, length of contact: pt evaluated discussed with team chart reviewed Patient Chief Complaint: I am feeling better Problems Identified/Issues Discussed: pt evaluated with treatment team, reported improved sleep, feeling less anxious , pt also reported partial clearing off of the visual hallucinations, also denied any current auditory hallucinations pt advised about sleep hygiene for insomnia, also encouraged to attend groups no reported side effects of medications pt denied command hallucinations, denied suicidal or homicidal ideation Medical Problems: multiple hospitalizations, hx of non compliance DSM 5 Symptoms Update: schizoaffective disorder depressed Medication Change: No Medical Record Reviewed: Yes Mental Status Examination - Cognitive Function Orientation: Person, Place, Situation Attention: WNL Concentration: WNL Association: WNL Fund of Knowledge: Poor - Mood Mood: Depressed, Anxious - Affect Affect: Constricted - Speech Speech: Appropriate - Formal Thought Process Formal Thought Process: Delusions, Circumstantial - Suicidal Ideation Suicidal Ideation: No - Homicidal Ideation Homicidal Ideation: No Goal/Treatment Plan - Goal/Treatment Plan Need for Continued Stay: Remain at risks for inpatient hospitalization, Severe depression anxiety, Discharge may exacerbated symptoms, Failed transitioning Progress Toward Problem(s) and Goals/Treatment Plan: risperidone 1mg daily and 2mg qhs depakote 1000 mg qhs for seizure disorder / follow up on depakote level neurontin 100m g tid for anxiety lexapro 10mg daily group and supportive therapy Estimated Date of D/C: 02/14/18
[2018-02-12 16:40] VITALS: BP 127/79; PULSE 87; RESP 20; TEMP 98
[2018-02-12] MEDS: Divalproex 500 mg DR(BID formulation) PO SCH (21:38)
--- NOTE | 2018-02-13 11:47 | PCM.PYCHDC ---
Mental Status Examination - Mental Status Examination Orientation: Person, Place, Situation Memory: Intact Mood: Neutral Affect: Broad Speech: Appropriate Attention: WNL Concentration: WNL Association: WNL Fund of Knowledge: WNL Formal Thought Process: Circumstantial Description of patient's judgement and insight: partial insight , poor judgment Psychotic Thoughts and Behaviors: pt reported on discharge clearing off of the visual hallucinations, denied current psychotic symptoms, non elicited Suicidal Ideation: No Current Homicidal Ideation?: No Discharge Summary - Discharge Note Reason for Hospitalization: pt is 32ys old male with previous diagnosis of schizoaffective disorder depressed , seizure disorder and PTSD, currently non compliant with medications or follow up started to decompensate, continues to have disturbing visions of people/ possible obsessions pt lost his job recently, and broke up with girlfriend, became homeless, started experiencing suicidal ideation, came to ER seeking help pt on evaluation presenting with depressed mood and affect, increased anxiety, passive suicidal ideation without active plan on the unit denied command hallucinations, denied command hallucinations Laboratory Data: Abnormal Lab Results 02/13/18 08:42 Valproic Acid 64.9 Consultations:: List each consultation separately and include: 1. Reason for request. 2. Findings. 3. Follow-up Summary of Hospital Course include:: 1. Description of specific treatment plan utilized for patients during their course of treatmen. 2. Summarize the time- course for resolution of acute symptoms and/or regressed behaviors. 3. Describe issues identified and worked on during hospitalization. 4. Describe medication utilized. 5. Describe medical problems identified and treated. 6. Reassessment of suicide risk Summary of Hospital Course: pt on admission was started on seroquel for depression and psychosis , pt however presented with side effects including drowsiness seroquel was discontinued and pt was started on risperidone pt was alsol placed on neurontin for anxiety and lexapro for depression pt was encouraged to attend groups CBT group and supportive therapy provided pt was compliant with treatment, no reported side effects on discharge mental status was stable, pt denied suicidal or homicidal ideation denied perceptual disturbances follow up arranged by social media content manager at [facility] outpatient services - Diagnosis (1) Hallucination Current Visit: No Status: Acute - Final Diagnosis (DSM 5) Condition upon Discharge: FAIR DSM 5: schizoaffective disorder depressed Disposition: HOME/ ROUTINE Follow-up Treatment Plan: risperidone 1mg daily and 2mg qhs depakote 1000 mg qhs for seizure disorder / follow up on depakote level neurontin 100m g tid for anxiety lexapro 10mg daily group and supportive therapy Prescriptions/Medication Reconciliation: Benztropine [Cogentin] 0.5 mg PO HS 30 Days #30 tab Divalproex [Depakote DR(*BID*)] 1,000 mg PO HS 30 Days #60 tcp Escitalopram [Lexapro] 10 mg PO DAILY 30 Days #30 tab Gabapentin [Neurontin] 100 mg PO TID 30 Days #90 cap risperiDONE [RisperDAL Tab] 1 mg PO DAILY 30 Days #30 tab risperiDONE [RisperDAL Tab] 3 mg PO HS 30 Days #30 tab traZODone [Desyrel] 150 mg PO HS 30 Days #45 tab - Smoking Cessation Smoking Cessation Medication prescribed: No - Antipsychotic Medications Pt discharged on 2 or more routine antipsychotic medications: No
== END 2018-02-13 13:00 | disposition home or self-care (01) | DRG 430 ==
LOC: H.ER 04:39 → H.ERHOLD 08:23 → H.PSYCH 10:10
PROVIDERS: ADMIT Psychiatry & Neurology Psychiatry; ATTEND Psychiatry & Neurology Psychiatry
PROC: GZHZZZZ Group Psychotherapy (ICD-10-PCS; principal; 2018-02-04)
PROC: GZ58ZZZ Individual Psychotherapy, Cognitive-Behavioral (ICD-10-PCS; 2018-02-04)
PROC: GZ56ZZZ Individual Psychotherapy, Supportive (ICD-10-PCS; 2018-02-04)
DX: F25.1 Schizoaffective disorder, depressive type (principal); G40.909 Epilepsy, unspecified, not intractable, without status epilepticus; Z91.14 Patient's other noncompliance with medication regimen; Z91.19 Patient's noncompliance with other medical treatment and regimen; G47.00 Insomnia, unspecified; R45.851 Suicidal ideations; F41.9 Anxiety disorder, unspecified; E78.00 Pure hypercholesterolemia, unspecified; E78.5 Hyperlipidemia, unspecified; I10 Essential (primary) hypertension; F43.10 Post-traumatic stress disorder, unspecified

== ENCOUNTER 2018-05-02 17:00 | Emergency (ER) | payer SELFPAY ==
[2018-05-02 17:00] VITALS: BMI 44.9
[2018-05-02 17:21] VITALS: BP 145/82; PULSE 67; RESP 16; TEMP 99.5; O2SAT 96
--- NOTE | 2018-05-02 17:59 | RAD ---
Date of service: 05/02/2018 HISTORY: palpitations COMPARISON: Chest radiograph dated 11/09/2017. TECHNIQUE: Chest PA and lateral FINDINGS: LUNGS: No active pulmonary disease. PLEURA: No significant pleural effusion identified. No pneumothorax apparent. CARDIOVASCULAR: No aortic atherosclerotic calcification present. Normal cardiac size. No pulmonary vascular congestion. OSSEOUS STRUCTURES: No significant abnormalities. VISUALIZED UPPER ABDOMEN: Normal. OTHER FINDINGS: None. IMPRESSION: No active disease.
[2018-05-02 18:10] LABS: URINE BILIRUBIN NEGATIVE (NEGATIVE); URINE BLOOD NEGATIVE (NEGATIVE); URINE CLARITY CLEAR (Clear); URINE COLOR STRAW (YELLOW); URINE GLUCOSE (UA) NEG (Normal); URINE LEUKOCYTE ESTERASE NEG Leu/uL (Negative); URINE PROTEIN NEGATIVE (NEGATIVE); URINE UROBILINOGEN 0.2-1.0 mg/dL (0.2-1.0)
[2018-05-02 18:13] LABS: BASO # 0.1 K/uL (0.0-0.2); EOS # 0.5 K/uL (0.0-0.7); EOS % 4.7 % (0.0-4.0); HEMOGLOBIN 13.4 g/dL (12.0-18.0); LYMPH # 2.8 K/uL (1.0-4.3); MEAN CELL VOLUME 85.2 fl (80.0-94.0); MEAN PLATELET VOLUME 8.2 fl (7.2-11.7); MONO # 0.8 K/uL (0.0-0.8); MONO % 7.4 % (0.0-10.0); NEUT # 6.6 K/uL (1.8-7.0); NEUT % 60.9 % (50.0-75.0); RBC 4.63 Mil/uL (4.40-5.90); RED CELL DISTRIBUTION WIDTH 14.4 % (11.5-14.5); WHITE BLOOD COUNT 10.9 K/uL (4.8-10.8)
[2018-05-02 18:18] LABS: ACETAMINOPHEN < 10.0 ug/ml (10.0-30.0); SALICYLATE < 1.0 mg/dl
[2018-05-02 18:19] LABS: ALB/GLOB RATIO 1.3 (1.0-2.1); ALBUMIN 3.9 g/dL (3.5-5.0); ALT/SGPT 33 U/L (21-72); AST/SGOT 32 U/L (17-59); BLOOD UREA NITROGEN 13 mg/dl (9-20); CALCIUM 9.1 mg/dL (8.4-10.2); GFR NON-AFRICAN AMERICAN > 60
[2018-05-02 18:24] LABS: BARBITURATES, UR NEGATIVE (NEGATIVE); BENZODIAZEPINES, UR NEGATIVE (NEGATIVE); OPIATES, UR NEGATIVE (NEGATIVE); PHENCYCLIDINE, UR NEGATIVE (NEGATIVE)
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
[2018-05-02 18:51] LABS: T3 1.09 nmol/L (1.49-2.60)
--- NOTE | 2018-05-03 18:13 | CARD ---
APPROVED REPORT Date of service: 05/02/2018 EKG Measurement Heart [id number] <Conclusion> Normal sinus rhythm Normal Electrocardiogram
== END 2018-05-02 20:19 | disposition home or self-care (01) ==
LOC: H.ER 17:00
DX: F20.9 Schizophrenia, unspecified (principal); G47.00 Insomnia, unspecified; E78.00 Pure hypercholesterolemia, unspecified; F31.9 Bipolar disorder, unspecified; F43.10 Post-traumatic stress disorder, unspecified; I10 Essential (primary) hypertension

== ENCOUNTER 2018-05-16 08:25 | Inpatient (IN) | payer MEDICAID, OTHER ==
[2018-05-16 08:25] VITALS: BMI 44.9
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
[2018-05-16 10:51] LABS: BASO # 0.1 K/uL (0.0-0.2); BASO % 1.1 % (0.0-2.0); EOS # 0.4 K/uL (0.0-0.7); EOS % 3.6 % (0.0-4.0); HEMOGLOBIN 13.4 g/dL (12.0-18.0); LYMPH # 2.9 K/uL (1.0-4.3); LYMPH % 23.6 % (20.0-40.0); MEAN CELL VOLUME 86.7 fl (80.0-94.0); MEAN CORPUSCULAR HEMOGLOBIN 28.8 pg (27.0-31.0); MEAN CORPUSCULAR HGB CONC 33.2 g/dL (33.0-37.0); MEAN PLATELET VOLUME 8.3 fl (7.2-11.7); MONO # 0.7 K/uL (0.0-0.8); MONO % 5.9 % (0.0-10.0); NEUT # 8.2 K/uL (1.8-7.0); NEUT % 65.8 % (50.0-75.0); NRBC % 0.3 % (0.0-0.0); RBC 4.65 Mil/uL (4.40-5.90); RED CELL DISTRIBUTION WIDTH 14.6 % (11.5-14.5); WHITE BLOOD COUNT 12.4 K/uL (4.8-10.8)
[2018-05-16 10:54] LABS: SQUAMOUS EPITHIAL < 1 /hpf (0-5); URINE BILIRUBIN NEGATIVE (NEGATIVE); URINE BLOOD NEGATIVE (NEGATIVE); URINE CLARITY CLEAR (Clear); URINE COLOR YELLOW (YELLOW); URINE GLUCOSE (UA) NEG (Normal); URINE LEUKOCYTE ESTERASE NEG Leu/uL (Negative); URINE PROTEIN NEGATIVE (NEGATIVE); URINE UROBILINOGEN 0.2-1.0 mg/dL (0.2-1.0)
[2018-05-16 11:09] LABS: BENZODIAZEPINES, UR NEGATIVE (NEGATIVE)
[2018-05-16 11:15] LABS: ALB/GLOB RATIO 1.3 (1.0-2.1); ALBUMIN 4.6 g/dL (3.5-5.0); ALT/SGPT 53 U/L (21-72); AST/SGOT 38 U/L (17-59); BARBITURATES, UR NEGATIVE (NEGATIVE); BLOOD UREA NITROGEN 13 mg/dl (9-20); CALCIUM 9.9 mg/dL (8.4-10.2); GFR NON-AFRICAN AMERICAN > 60; OPIATES, UR NEGATIVE (NEGATIVE); PHENCYCLIDINE, UR NEGATIVE (NEGATIVE)
[2018-05-16 12:34] VITALS: O2SAT 98
[2018-05-16] MEDS ORDERED: Magnesium Hydroxide Susp 30 ml UD PO PRN (15:13)
[2018-05-16] MEDS ORDERED: Alum-Mag Hydrox-Simethicone Susp (30 mL) PO PRN (15:13)
[2018-05-16] MEDS ORDERED: DiphenhydrAMINE 50 mg/ml Inj IM PRN (15:13)
--- NOTE | 2018-05-16 17:09 | PCM.PSYCH ---
Initial Psychiatric Evaluation - Initial Psychiatric Evaluation Type of Admission: Voluntary Legal Status: Capacity Chief Complaint (in patient's own words): I have not slepT and I feel I am in hell History of Present Illness and Precipitating Events: pt is 33 ys old male with previous diagnosis of schizoaffective disorder, pt has notbeen compliant with medications due to financial difficulties, pt also lost his job a week ago, became increasingly depressed, poor sleep , ncreased anxiety, startedhaving non command auditory hallucinations, on day of evaluation presented to ER with suicidal ideation ,plan to overdose pt on unit tearful anxious, reportes passive suicidal ideation without active plan denied command hallucinations Current Medications: Active Medications Generic Name Dose Route Start Last Admin Trade Name Freq PRN Reason Stop Dose Admin Acetaminophen 650 mg 05/16/18 15:13 05/16/18 15:33 Tylenol 325mg Tab PO 650 mg Q4 PRN Administration Pain, moderate (4-7) Al Hydrox/Mg Hydrox/Simethicone 30 ml 05/16/18 15:13 Maalox Plus 30 Ml PO Q4 PRN Dyspepsia Diphenhydramine HCl 50 mg 05/16/18 15:13 Benadryl IM Q6 PRN Extrapyramidal S/S Unable PO Diphenhydramine HCl 50 mg 05/16/18 15:13 Benadryl PO Q6 PRN Extrapyramidal Symptoms Gabapentin 100 mg 05/16/18 17:00 Neurontin PO TID ENEIDA Haloperidol 5 mg 05/16/18 15:13 Haldol PO Q4 PRN Agitation Haloperidol Lactate 5 mg 05/16/18 15:13 Haldol IM Q4 PRN Agitation, Unable to Take PO Lorazepam 2 mg 05/16/18 15:13 Ativan IM Q4 PRN Anxiety/Agitation,Unable PO Lorazepam 1 mg 05/16/18 15:13 Ativan PO Q8 PRN Anxiety/Agitation Magnesium Hydroxide 30 ml 05/16/18 15:13 Milk Of Magnesia PO HS PRN Constipation Quetiapine Fumarate 100 mg 05/16/18 22:00 Seroquel PO HS ENEIDA Quetiapine Fumarate 50 mg 05/16/18 17:00 Seroquel PO BID ENEIDA Past Psychiatric History - Past Psychiatric History Explanation of prior treatment: multiple hospitalizations, hx of non compliance Pertinent Medical Hx (Current Medical&Sleep Prob, Allergies): Allergies Allergy/AdvReac Type Severity Reaction Status Date / Time No Known Allergies Allergy Verified 05/02/18 17:13 Gabapentin [Neurontin] 100 mg PO TID 30 Days #90 cap 02/13/18 risperiDONE [RisperDAL Tab] 3 mg PO HS 30 Days #30 tab 02/13/18 Benztropine [Cogentin] 1 mg PO BID #60 tab 04/09/18 Divalproex [Depakote DR] 250 mg PO BID #60 tcp 04/09/18 Divalproex [Depakote DR] 500 mg PO BID #60 tcp 04/09/18 clonazePAM [Klonopin] 1 mg PO BID #30 tab 04/09/18 fluPHENAZine [Prolixin] 10 mg PO BID #60 tab 04/09/18 Zolpidem [Ambien] 10 mg PO HS PRN #7 tab 05/02/18 Escitalopram [Lexapro] 20 mg PO DAILY 05/16/18 Metoprolol Tartrate [Lopressor] 50 mg PO DAILY 05/16/18 traZODone [Desyrel] 100 mg PO HS 05/16/18 Mental Status Examination - Personal Presentation Personal Presentation: Looks older than stated age - Affect Affect: Constricted, Depressed - Motor Activity Motor Activity: Psychomotor Agitation - Reliability in Providing Information Reliability in Providing Information: Poor, due to alteration in thoughts, Poor, due to altered mood - Speech Speech: Tangential - Mood Mood: Depressed, Anxious - Formal Thought Process Formal Thought Process: Hallucinations, Circumstantial - Hallucinations/Delusions Hallucinations: Auditory - Obsessions/Compulsions Obsessions: No Compulsions: No - Cognitive Functions Orientation: Person, Place, Situation Sensorium: Alert - Risk Risk: Suicidal, Diminished functioning - Strength & Assets Inventory Strength & Assets Inventory: Life experience - Limitations Additional comments: poor social support DSM 5 DX - DSM 5 DSM 5 Diagnosis: schizoaffective disorder depressed - Recommended/Plan of Treatment Treatment Recommendations and Plan of Treatment: start seroquel 50mg bid, 100mg qhs neurontin 100mg tid internal medicaine consult group and supportive therapy
--- NOTE | 2018-05-16 19:13 | PCM.BM ---
<Nereyda Murray - Last Filed: 05/16/18 19:13> Treatment Plan Problems - Problems identified on initial assessmt Medication Non adherence Date Initiated: 05/16/18 Time Initiated: 19:11 Assessment reference: NA Hopelessness/Helplessness Date Initiated: 05/16/18 Time Initiated: 19:13 Assessment reference: NA Status: Active Treatment assets and liabiliti Patient Assests: cooperative, resourceful, self-reliant, ADL independent, negotiates basic needs Patient Liabilities: financial problems, other - Milieu Protocol Maintain good personal hygiene: daily Encourage regular showers, every shift Remind patient to perform daily oral care, every shift Assist patient to perform ADL's Conduct patient checks and document Observation sheet: Q15 minutes Maintain personal safety: every shift Educate patient to report safety concerns to staff, every shift Monitor environment for contraband/sharps Medication safety: Monitor for expected outcome, potential side effects: every shift, Assess barriers to learning: every shift, Assess readiness for medication education: every shift Milieu Narrative: start seroquel 50mg bid, 100mg qhs neurontin 100mg tid internal medicaine consult group and supportive therapy Discharge/Continuing Care - Treatment Team Participation Patient/Family/SO Statement: start seroquel 50mg bid, 100mg qhs neurontin 100mg tid internal medicaine consult group and supportive therapy <Chris Curtis - Last Filed: 05/18/18 16:44> Family Contact Family involvement: Famliy/SO not involved Family contact: Patient declines to allow family contact at present Family contact name: Pt denied. - Goals for Treatment Patient goals for treatment: Pt reported he would like his depression to be improved and his sleep managed better as he has not slept in 12 days. Discharge/Continuing Care - Education Needs Education Needs: Patient Medication, Patient Diagnosis/Disease Process, Patient Coping Skills, Patient Community resources, Patient Aftercare Safety Plan - Discharge Discharge Criteria: Tolerates medication w/o severe side effects, Free of Suicidal thoughts, Free of agitation, Normal sleep pattern, Ability to care for self, Reduction of target symptoms Discharge to:: Home, With Family - Additional Comments 05/18/18 16:45 Pt seen in treatment team on 05/18/18. 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 Pt reported that his main complaint has been that he has not slept for 12 days and has been unable to work due to poor concentration and irritability. Pt reported that he discontinued his medications following discharge because he found them to be ineffective. Pt denied SI/HI and AVT hallucinations. Pt denied depression and anxiety and other acute [id number] symptoms other than poor sleep. Pt was constricted and internal with poor eye contact. Pt's speech was edgy and difficult to understand at times. Medications of Seroquel and Neurontin discussed. Pt reported that he continues to reside with his girlfriend. - Treatment Team Participation Discussed with Family/SO: No Was Patient/Family/SO present at Treatment Team Meeting: Yes <Alex Platt - Last Filed: 05/23/18 14:22> - Diagnosis (1) Depression Status: Acute Interventions: psychotherapy, pharmacotherapy 05/23/18 14:22
[2018-05-17 08:50] LABS: T4 5.85 ug/dl (5.5-11.0)
--- NOTE | 2018-05-17 15:07 | PCM.PYCHPN ---
Psychiatric Progress Note - Psychiatric Progress Note Patient seen today, length of contact: pt evaluated discussed with team chart reviewed Patient Chief Complaint: I get anxious and depressed Problems Identified/Issues Discussed: pt on evaluation continues to be anxious depressed, underproductive speech, continues to report poor sleep and non command auditory hallucinations, discussed increasing seroquel gradually , no reported side effects, encouraged pt to attend groups. pt denied active thoughts of self harm on the unit, denied command hallucinations Medical Problems: multiple hospitalizations, hx of non compliance DSM 5 Symptoms Update: schizoaffective disorder depressed Medication Change: Yes (increase seroquel) Medical Record Reviewed: Yes Mental Status Examination - Cognitive Function Orientation: Person, Place, Situation Attention: Poor Concentration: Poor Association: WNL Fund of Knowledge: Poor Decription of patient's judgement and insights: fair insight , poor judgment - Mood Mood: Depressed, Anxious - Affect Affect: Constricted, Depressed - Speech Speech: Soft - Formal Thought Process Formal Thought Process: Hallucinations, Circumstantial - Suicidal Ideation Suicidal Ideation: No - Homicidal Ideation Homicidal Ideation: No Goal/Treatment Plan - Goal/Treatment Plan Need for Continued Stay: Severe depression anxiety, Discharge may exacerbated symptoms Progress Toward Problem(s) and Goals/Treatment Plan: increase seroquel 50mg bid, 200mg qhs neurontin 100mg tid group and supportive therapy
--- NOTE | 2018-05-18 14:11 | CP.PCM.CON ---
History of Present Illness - History of Present Illness History of Present Illness: 33 yo male with history of schizoaffective DO admitted to psyche unit because of worsening depression and suicidal ideation. Review of Systems - Review of Systems All systems: reviewed and no additional remarkable complaints except (aside from those mentioned above, 12 point system review were negative by me) Past Patient History - Infectious Disease Hx of Infectious Diseases: None - Tetanus Immunizations Tetanus Immunization: Unknown - Past Social History Smoking Status: Never Smoked Alcohol: Occasional (claims he has not drank in 3 years) Drugs: Denies - CARDIAC Hx Cardiac Disorders: Yes - PULMONARY Hx Tuberculosis: No - NEUROLOGICAL HX Cerebrovascular Accident: No Hx Seizures: No - HEENT Hx HEENT Problems: No - RENAL Hx Chronic Kidney Disease: No - ENDOCRINE/METABOLIC Hx Endocrine Disorders: No - HEMATOLOGICAL/ONCOLOGICAL Hx Cancer: No Hx Human Immunodeficiency Virus (HIV): No - INTEGUMENTARY Hx Dermatological Problems: No - MUSCULOSKELETAL/RHEUMATOLOGICAL Hx Fractures: Yes (left shoulder 3 months ago) - GASTROINTESTINAL Hx Gastrointestinal Disorders: No - GENITOURINARY/GYNECOLOGICAL Hx Sexually Transmitted Disorders: No - PSYCHIATRIC Hx Substance Use: No - SURGICAL HISTORY Hx Surgeries: No - ANESTHESIA Hx Anesthesia: No Hx Anesthesia Reactions: No Hx Malignant Hyperthermia: No Meds Allergies/Adverse Reactions: Allergies Allergy/AdvReac Type Severity Reaction Status Date / Time No Known Allergies Allergy Verified 05/02/18 17:13 - Medications Medications: Current Medications Acetaminophen (Tylenol 325mg Tab) 650 mg PO Q4 PRN PRN Reason: Pain, moderate (4-7) Last Admin: 05/17/18 21:30 Dose: 650 mg Al Hydrox/Mg Hydrox/Simethicone (Maalox Plus 30 Ml) 30 ml PO Q4 PRN PRN Reason: Dyspepsia Diphenhydramine HCl (Benadryl) 50 mg IM Q6 PRN PRN Reason: Extrapyramidal S/S Unable PO Diphenhydramine HCl (Benadryl) 50 mg PO Q6 PRN PRN Reason: Extrapyramidal Symptoms Gabapentin (Neurontin) 100 mg PO TID [facility] Last Admin: 05/18/18 09:06 Dose: 100 mg Haloperidol (Haldol) 5 mg PO Q4 PRN PRN Reason: Agitation Haloperidol Lactate (Haldol) 5 mg IM Q4 PRN PRN Reason: Agitation, Unable to Take PO Lorazepam (Ativan) 2 mg IM Q4 PRN PRN Reason: Anxiety/Agitation,Unable PO Lorazepam (Ativan) 1 mg PO Q8 PRN PRN Reason: Anxiety/Agitation Magnesium Hydroxide (Milk Of Magnesia) 30 ml PO HS PRN PRN Reason: Constipation Quetiapine Fumarate (Seroquel) 50 mg PO BID [facility] Last Admin: 05/18/18 09:07 Dose: 50 mg Quetiapine Fumarate (Seroquel) 200 mg PO HS [facility] Last Admin: 05/17/18 21:29 Dose: 200 mg Physical Exam - Constitutional Appears: No Acute Distress - Head Exam Head Exam: ATRAUMATIC - Eye Exam Eye Exam: absent: Scleral icterus - ENT Exam ENT Exam: Mucous Membranes Moist - Neck Exam Neck exam: Negative for: Meningismus - Respiratory Exam Respiratory Exam: absent: Rales, Rhonchi, Wheezes, Respiratory Distress, Stridor - Cardiovascular Exam Cardiovascular Exam: REGULAR RHYTHM, +S1, +S2 - GI/Abdominal Exam GI & Abdominal Exam: Soft. absent: Tenderness - Rectal Exam Rectal Exam: Deferred - Neurological Exam Neurological exam: Alert, Oriented x3 - Psychiatric Exam Psychiatric exam: Normal Affect - Skin Skin Exam: Dry, Intact Results - Vital Signs Recent Vital Signs: Last Vital Signs Temp 96.9 F L 05/18/18 09:17 Pulse 59 L 05/18/18 09:17 Resp 18 05/18/18 09:17 BP 103/67 05/18/18 09:17 Pulse Ox 98 05/16/18 12:33 - Labs Result Diagrams: 05/16/18 10:30 05/16/18 10:30 Labs: Laboratory Results - last 24 hr 05/17/18 07:50 RPR Nonreactive Assessment & Plan (1) Depression Status: Acute Comment: psyche is managing
--- NOTE | 2018-05-19 11:24 | PCM.PYCHPN ---
Psychiatric Progress Note - Psychiatric Progress Note Patient seen today, length of contact: pt evaluated discussed with team chart reviewed Patient Chief Complaint: I still see things and it is hard to sleep Problems Identified/Issues Discussed: pt on evaluation continues to present with anxious affect and depressed mood, , underproductive speech, continues to report poor sleep and visual hallucinations , discussed increasing seroquel gradually , no reported side effects, encouraged pt to attend groups. pt denied active thoughts of self harm on the unit, denied command hallucinations Medical Problems: multiple hospitalizations, hx of non compliance DSM 5 Symptoms Update: schizoaffective disorder ptsd Medication Change: Yes (increase seroquel) Medical Record Reviewed: Yes Mental Status Examination - Cognitive Function Orientation: Person, Place, Situation Attention: Poor Concentration: Poor Association: WNL Fund of Knowledge: Poor Decription of patient's judgement and insights: fair insight , poor judgment - Mood Mood: Depressed, Anxious - Affect Affect: Constricted, Depressed - Speech Speech: Soft - Formal Thought Process Formal Thought Process: Hallucinations, Circumstantial - Suicidal Ideation Suicidal Ideation: No - Homicidal Ideation Homicidal Ideation: No Goal/Treatment Plan - Goal/Treatment Plan Need for Continued Stay: Severe depression anxiety, Discharge may exacerbated symptoms Progress Toward Problem(s) and Goals/Treatment Plan: increase seroquel 50mg bid, 300mg qhs neurontin 100mg tid group and supportive therapy
--- NOTE | 2018-05-19 11:26 | PCM.PYCHPN ---
Psychiatric Progress Note - Psychiatric Progress Note Patient seen today, length of contact: pt evaluated discussed with team chart reviewed Patient Chief Complaint: I cant work Problems Identified/Issues Discussed: pt evaluated with treatment team continues to be anxious depressed, underproductive speech, continues to report poor sleep and non command auditory hallucinations, discussed increasing seroquel gradually , no reported side effects, encouraged pt to attend groups. pt denied active thoughts of self harm on the unit, denied command hallucinations Medical Problems: multiple hospitalizations, hx of non compliance DSM 5 Symptoms Update: schizoaffective disorder Medication Change: No (increase seroquel) Medical Record Reviewed: Yes Mental Status Examination - Cognitive Function Orientation: Person, Place, Situation Attention: Poor Concentration: Poor Association: WNL Fund of Knowledge: Poor Decription of patient's judgement and insights: fair insight , poor judgment - Mood Mood: Depressed, Anxious - Affect Affect: Constricted, Depressed - Speech Speech: Soft - Formal Thought Process Formal Thought Process: Hallucinations, Circumstantial - Suicidal Ideation Suicidal Ideation: No - Homicidal Ideation Homicidal Ideation: No Goal/Treatment Plan - Goal/Treatment Plan Need for Continued Stay: Severe depression anxiety, Discharge may exacerbated symptoms Progress Toward Problem(s) and Goals/Treatment Plan: seroquel 50mg bid, 200mg qhs neurontin 100mg tid group and supportive therapy
--- NOTE | 2018-05-20 13:25 | PCM.PYCHPN ---
Psychiatric Progress Note - Psychiatric Progress Note Patient seen today, length of contact: pt evaluated discussed with team chart reviewed Patient Chief Complaint: I am anxious and I can't sleep Problems Identified/Issues Discussed: pt evaluated , continues to report increased anxiety , also reported poor sleep with early insomnia, discussed increasing neurontin and starting trazodone, no reported side effects, pt continues to have visual hallucinations pt denied active thoughts of self harm on the unit, denied command hallucinations Medical Problems: multiple hospitalizations, hx of non compliance Medication Change: No (start trazodone ) Medical Record Reviewed: Yes Mental Status Examination - Cognitive Function Orientation: Person, Place, Situation Attention: Poor Concentration: Poor Association: WNL Fund of Knowledge: Poor Decription of patient's judgement and insights: fair insight , poor judgment - Mood Mood: Depressed, Anxious - Affect Affect: Constricted, Depressed - Speech Speech: Soft - Formal Thought Process Formal Thought Process: Hallucinations, Circumstantial - Suicidal Ideation Suicidal Ideation: No - Homicidal Ideation Homicidal Ideation: No Goal/Treatment Plan - Goal/Treatment Plan Need for Continued Stay: Severe depression anxiety, Discharge may exacerbated symptoms Progress Toward Problem(s) and Goals/Treatment Plan: seroquel 50mg bid, 200mg qhs neurontin 200mg tid trazodone 100mg qhs group and supportive therapy
--- NOTE | 2018-05-21 14:49 | PCM.PYCHPN ---
Psychiatric Progress Note - Psychiatric Progress Note Patient seen today, length of contact: pt evaluated discussed with team chart reviewed Patient Chief Complaint: I still see bad visions and I obsess about them Problems Identified/Issues Discussed: pt evaluated with treatment team , continues to report increased anxiety ,relates that to visual hallucinations,of bad scenes and blood , which he obsesses about ,also reported increased anxiety and poor sleep, dscussed cross tapering seroquel with risperidone and starting fluvoxamine pt denied active thoughts of self harm on the unit, denied command hallucinations Medical Problems: multiple hospitalizations, hx of non compliance Medication Change: No (start trazodone ) Medical Record Reviewed: Yes Mental Status Examination - Cognitive Function Orientation: Person, Place, Situation Attention: Poor Concentration: Poor Association: WNL Fund of Knowledge: Poor Decription of patient's judgement and insights: fair insight , poor judgment - Mood Mood: Depressed, Anxious - Affect Affect: Constricted, Depressed - Speech Speech: Soft - Formal Thought Process Formal Thought Process: Hallucinations, Circumstantial - Suicidal Ideation Suicidal Ideation: No - Homicidal Ideation Homicidal Ideation: No Goal/Treatment Plan - Goal/Treatment Plan Need for Continued Stay: Severe depression anxiety, Discharge may exacerbated symptoms Progress Toward Problem(s) and Goals/Treatment Plan: discontinue seroquel, start risperidone start fluvoxamine neurontin 200mg tid trazodone 100mg qhs group and supportive therapy
--- NOTE | 2018-05-22 14:51 | PCM.PYCHPN ---
Psychiatric Progress Note - Psychiatric Progress Note Patient seen today, length of contact: pt evaluated discussed with team chart reviewed Patient Chief Complaint: I am less anxious Problems Identified/Issues Discussed: pt evaluated reported feeling less anxious with neurontin, continues to have repeated pictures of unpleasant scary scenes , reported partial clearing of the auditory hallucinations, discussed increasing fluvoxamine , no reported side effects pt denied active thoughts of self harm on the unit, denied command hallucinations Medical Problems: multiple hospitalizations, hx of non compliance DSM 5 Symptoms Update: schizoaffective disorder Medication Change: Yes (increase luvox) Medical Record Reviewed: Yes Mental Status Examination - Cognitive Function Orientation: Person, Place, Situation Attention: Poor Concentration: Poor Association: WNL Fund of Knowledge: Poor Decription of patient's judgement and insights: fair insight , poor judgment - Mood Mood: Depressed, Anxious - Affect Affect: Constricted, Depressed - Speech Speech: Soft - Formal Thought Process Formal Thought Process: Hallucinations, Circumstantial - Suicidal Ideation Suicidal Ideation: No - Homicidal Ideation Homicidal Ideation: No Goal/Treatment Plan - Goal/Treatment Plan Need for Continued Stay: Severe depression anxiety, Discharge may exacerbated symptoms Progress Toward Problem(s) and Goals/Treatment Plan: risperidone 2mg qhs increase fluvoxamine, 100 mg qhs neurontin 200mg tid trazodone 100mg qhs group and supportive therapy
--- NOTE | 2018-05-23 14:26 | PCM.PYCHPN ---
Psychiatric Progress Note - Psychiatric Progress Note Patient seen today, length of contact: pt evaluated discussed with team chart reviewed Patient Chief Complaint: I still get anxious Problems Identified/Issues Discussed: pt evaluated , reported anxious mood, affect constricted, reported decreased sleep sleep last nigh with early insomnia CBT provided , encouraged pt to attend groups, no reported side effects with the increase in fluvoxamine pt denied active thoughts of self harm on the unit, denied command hallucinations Medical Problems: multiple hospitalizations, hx of non compliance DSM 5 Symptoms Update: schizoaffective disorder Medication Change: No (increase luvox) Medical Record Reviewed: Yes Mental Status Examination - Cognitive Function Orientation: Person, Place, Situation Attention: Poor Concentration: Poor Association: WNL Fund of Knowledge: Poor Decription of patient's judgement and insights: fair insight , poor judgment - Mood Mood: Depressed, Anxious - Affect Affect: Constricted, Depressed - Speech Speech: Soft - Formal Thought Process Formal Thought Process: Hallucinations, Circumstantial - Suicidal Ideation Suicidal Ideation: No - Homicidal Ideation Homicidal Ideation: No Goal/Treatment Plan - Goal/Treatment Plan Need for Continued Stay: Severe depression anxiety, Discharge may exacerbated symptoms Progress Toward Problem(s) and Goals/Treatment Plan: risperidone 2mg qhs fluvoxamine, 100 mg qhs neurontin 200mg tid trazodone 100mg qhs group and supportive therapy
--- NOTE | 2018-05-24 10:52 | PCM.PYCHPN ---
Psychiatric Progress Note - Psychiatric Progress Note Patient seen today, length of contact: pt evaluated discussed with team chart reviewed Patient Chief Complaint: I feel better with the new medicine Problems Identified/Issues Discussed: pt evaluated , reported FEELING LESS ANXIOUS WITH THE TEGRETOL , IMPROVED SLEEP WITH THE PRAZOSIN pt more visible on the unit with less psychomotor agitation and less restless , no reported side effects pt denied active thoughts of self harm on the unit, denied command hallucinations Medical Problems: multiple hospitalizations, hx of non compliance DSM 5 Symptoms Update: PTSD OCD HX OF SCHIZOAFFECTIVE DISORDER Medication Change: No Medical Record Reviewed: Yes Mental Status Examination - Cognitive Function Orientation: Person, Place, Situation Attention: Poor Concentration: Poor Association: WNL Fund of Knowledge: Poor Decription of patient's judgement and insights: fair insight , poor judgment - Mood Mood: Depressed, Anxious - Affect Affect: Constricted, Depressed - Speech Speech: Soft - Formal Thought Process Formal Thought Process: Hallucinations, Circumstantial - Suicidal Ideation Suicidal Ideation: No - Homicidal Ideation Homicidal Ideation: No Goal/Treatment Plan - Goal/Treatment Plan Need for Continued Stay: Severe depression anxiety, Discharge may exacerbated symptoms Progress Toward Problem(s) and Goals/Treatment Plan: risperidone 2mg qhs fluvoxamine, 100 mg qhs tegretol 200mg bid prazosin 1mg qhs neurontin 200mg tid trazodone 100mg qhs group and supportive therapy
--- NOTE | 2018-05-25 12:52 | PCM.PYCHPN ---
Psychiatric Progress Note - Psychiatric Progress Note Patient seen today, length of contact: pt evaluated discussed with team chart reviewed Patient Chief Complaint: I am starting to feel anxious again and I could not sleep Problems Identified/Issues Discussed: pt evaluated ,reported poor sleep with early and intermittent insomnia, reported increased anxiety probably related to decreased sleep, discussed with pt increasing dose of trazodone and neurontin, pt also unable to remember previous seizure episodes, so discussed discontinuing tegretol pt denied active thoughts of self harm on the unit, denied command hallucinations Medical Problems: multiple hospitalizations, hx of non compliance DSM 5 Symptoms Update: post traumatic stress disorder rule out TBI induced mood disorder rule out TBI induced psychotic disorder hx of schizoaffective disorder Medication Change: Yes (increase neurontin and trazodone ) Medical Record Reviewed: Yes Mental Status Examination - Cognitive Function Orientation: Person, Place, Situation Attention: WNL Concentration: WNL Association: WNL Fund of Knowledge: Poor Decription of patient's judgement and insights: fair insight , poor judgment - Mood Mood: Depressed, Anxious - Affect Affect: Constricted, Depressed - Speech Speech: Soft - Formal Thought Process Formal Thought Process: Hallucinations, Circumstantial - Suicidal Ideation Suicidal Ideation: No - Homicidal Ideation Homicidal Ideation: No Goal/Treatment Plan - Goal/Treatment Plan Need for Continued Stay: Severe depression anxiety, Discharge may exacerbated symptoms Progress Toward Problem(s) and Goals/Treatment Plan: risperidone 2mg qhs fluvoxamine, 100 mg qhs discontinue tegretol prazosin 1mg qhs increase neurontin 300mg tid increase trazodone 200mg qhs group and supportive therapy
--- NOTE | 2018-05-26 09:21 | PCM.PYCHPN ---
Psychiatric Progress Note - Psychiatric Progress Note Patient seen today, length of contact: Pt evaluated, case discussed w/ team, chart reviewed Patient Chief Complaint: Depression/Anxiety Problems Identified/Issues Discussed: Patient reports that he continues to have poor sleep, nightmares and anxiety. He has constricted affect and answers questions minimally. No adverse effects to medications reported. NO current AH/VH/paranoia. He reports that he last had VH of blood on the wall 4 days ago. No SI/HI. Medication Change: No Medical Record Reviewed: Yes Consults ordered or reviewed: Medicine consult Mental Status Examination - Cognitive Function Orientation: Person, Place, Situation, Time Memory: Intact Attention: WNL Concentration: WNL Association: WNL Fund of Knowledge: Poor Decription of patient's judgement and insights: Poor I/J - Mood Mood: Depressed, Anxious - Affect Affect: Constricted, Depressed - Speech Speech: Soft - Formal Thought Process Formal Thought Process: Circumstantial Psychotic Thoughts and Behaviors: Denies acute AH/VH - Suicidal Ideation Suicidal Ideation: No - Homicidal Ideation Homicidal Ideation: No Goal/Treatment Plan - Goal/Treatment Plan Need for Continued Stay: Severe depression anxiety, Discharge may exacerbated symptoms Progress Toward Problem(s) and Goals/Treatment Plan: PTSD, Schizoaffective Disorder; r/o TBI induced mood and psychotic disorder -Continue current medications -Individual and group therapy -Psychoeducation -Disposition planning
--- NOTE | 2018-05-27 09:34 | PCM.PYCHPN ---
Psychiatric Progress Note - Psychiatric Progress Note Patient seen today, length of contact: Pt evaluated, case discussed w/ team, chart reviewed Patient Chief Complaint: Visual hallucinations of people Problems Identified/Issues Discussed: Patient reports that he is actively having visual hallucinations of people. We discussed increasing his Risperdal. He also continues to have disturbing nightmares which cause him to have anxiety and poor sleep. No adverse effects to medications reported. No SI/HI. Medication Change: Yes (Increase Risperdal, Increase Prazosin) Medical Record Reviewed: Yes Consults ordered or reviewed: Medicine consult Mental Status Examination - Cognitive Function Orientation: Person, Place, Situation, Time Memory: Intact Attention: WNL Concentration: WNL Association: WNL Fund of Knowledge: Poor Decription of patient's judgement and insights: Poor I/J - Mood Mood: Depressed, Anxious - Affect Affect: Constricted, Depressed - Speech Speech: Soft - Formal Thought Process Formal Thought Process: Hallucinations Psychotic Thoughts and Behaviors: +VH of people - Suicidal Ideation Suicidal Ideation: No - Homicidal Ideation Homicidal Ideation: No Goal/Treatment Plan - Goal/Treatment Plan Need for Continued Stay: Severe depression anxiety, Discharge may exacerbated symptoms Progress Toward Problem(s) and Goals/Treatment Plan: PTSD, Schizoaffective Disorder; r/o TBI induced mood and psychotic disorder -Increase Risperdal -Increase Prazosin -Continue Trazodone, Luvox and Neurontin -Individual and group therapy -Psychoeducation -Disposition planning
--- NOTE | 2018-05-28 14:05 | PCM.PYCHPN ---
Psychiatric Progress Note - Psychiatric Progress Note Patient seen today, length of contact: Pt evaluated, case discussed w/ team, chart reviewed Patient Chief Complaint: was feeling anxious and depressed with hearing voices and having nightmares, now somewhat improved recent increase in medications yesterday. denies side effects, seen about unit per staff. Problems Identified/Issues Discussed: alteration in mood alteration in cognition Medical Problems: per chart Diagnostic Results: per psychiatry per medicine per nursing per social work nurse per recreational therapy Medication Change: No Medical Record Reviewed: Yes Consults ordered or reviewed: defers Mental Status Examination - Cognitive Function Orientation: Person, Place, Situation, Time Memory: Intact Attention: WNL Concentration: WNL Association: WNL Fund of Knowledge: Poor Decription of patient's judgement and insights: impaired - Mood Mood: Depressed, Anxious - Affect Affect: Constricted, Depressed - Speech Speech: Soft - Formal Thought Process Formal Thought Process: Hallucinations Psychotic Thoughts and Behaviors: less - Suicidal Ideation Suicidal Ideation: No - Homicidal Ideation Homicidal Ideation: No Goal/Treatment Plan - Goal/Treatment Plan Need for Continued Stay: Severe depression anxiety, Discharge may exacerbated symptoms Progress Toward Problem(s) and Goals/Treatment Plan: inpt milieu adjust meds per status access to sammarinese speaking providers prn (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
--- NOTE | 2018-05-29 15:07 | PCM.PYCHPN ---
Psychiatric Progress Note - Psychiatric Progress Note Patient seen today, length of contact: Pt evaluated, case discussed w/ team, chart reviewed Patient Chief Complaint: I am feeling better Problems Identified/Issues Discussed: PT EVALUATED WITH TREATMENT TEAM, REPORTED IMPROVED SLEEP, DECREASED NIGHT SALAZAR. DECREASED VISIONS, DENIED CURRENT AUDITORY HALLUCINATIONS,DENIED SIDE EFFECTS WITH INCREASED MEDICATIONS pt denied active thoughts of self harm on the unit, denied command hallucinations Medical Problems: multiple hospitalizations, hx of non compliance DSM 5 Symptoms Update: PTSD RULE OUT ocd HX OF SCHIZOAFFECTIVE DISORDER Medication Change: No Medical Record Reviewed: Yes Mental Status Examination - Cognitive Function Orientation: Person, Place, Situation, Time Memory: Intact Attention: WNL Concentration: WNL Association: WNL Fund of Knowledge: Poor - Mood Mood: Depressed, Anxious - Affect Affect: Constricted, Depressed - Speech Speech: Soft - Formal Thought Process Psychotic Thoughts and Behaviors: PT REPORTED CLEARING OFF OF THE HALLUCINATIONS - Suicidal Ideation Suicidal Ideation: No - Homicidal Ideation Homicidal Ideation: No Goal/Treatment Plan - Goal/Treatment Plan Need for Continued Stay: Severe depression anxiety, Discharge may exacerbated symptoms Progress Toward Problem(s) and Goals/Treatment Plan: risperidone 3mg qhs fluvoxamine, 100 mg qhs discontinue tegretol prazosin 2mg qhs neurontin 300mg tid trazodone 200mg qhs group and supportive therapy Estimated Date of D/C: 05/30/18
[2018-05-30 09:01] VITALS: BP 137/83; PULSE 75; RESP 17; TEMP 96.9
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
== END 2018-05-30 14:45 | disposition home or self-care (01) | DRG 885 ==
LOC: H.ER 08:25 → H.ERHOLD 11:44 → H.PSYCH 13:50
PROVIDERS: ADMIT Psychiatry & Neurology Psychiatry; ATTEND Psychiatry & Neurology Psychiatry
PROC: GZHZZZZ Group Psychotherapy (ICD-10-PCS; principal; 2018-05-16)
PROC: GZ58ZZZ Individual Psychotherapy, Cognitive-Behavioral (ICD-10-PCS; 2018-05-16)
DX: F25.1 Schizoaffective disorder, depressive type (principal); R45.851 Suicidal ideations; F43.10 Post-traumatic stress disorder, unspecified; F42.9 Obsessive-compulsive disorder, unspecified; Z91.14 Patient's other noncompliance with medication regimen; Z91.19 Patient's noncompliance with other medical treatment and regimen; I10 Essential (primary) hypertension; E78.5 Hyperlipidemia, unspecified; G47.09 Other insomnia; F17.200 Nicotine dependence, unspecified, uncomplicated

== ENCOUNTER 2018-07-13 12:22 | Inpatient (IN) | payer MEDICAID, SELFPAY ==
[2018-07-13 12:33] VITALS: O2SAT 97; BMI 41.9
--- NOTE | 2018-07-13 13:09 | ED PDOC ---
Psych Transfer Clearance - Clearance Statement Clearance Statement: Reviewed vital signs, lab results and transfer papers. Patient clinically stable for psychiatric admission.
[2018-07-13] MEDS ORDERED: Magnesium Hydroxide Susp 30 ml UD PO PRN (14:10)
[2018-07-13] MEDS ORDERED: DiphenhydrAMINE 50 mg/ml Inj IM PRN (14:10)
[2018-07-13] MEDS ORDERED: Haloperidol Lactate 2 mg/ml Liquid PO PRN (14:10)
[2018-07-13] MEDS ORDERED: Alum-Mag Hydrox-Simethicone Susp (30 mL) PO PRN (14:10)
--- NOTE | 2018-07-13 15:23 | PCM.PSYCH ---
Initial Psychiatric Evaluation - Initial Psychiatric Evaluation Type of Admission: Voluntary Legal Status: Capacity Chief Complaint (in patient's own words): I have bad thoughts in my mind History of Present Illness and Precipitating Events: pt is 33ys old male with previous diagnosis of schizoaffective disorder , PTSD , reportedly compliant with medications and follow up presented to ER with suicidal ideation, pt reported for past two weeks has been feeling increasingly anxious having repetitive visions of bad scenes including blood, pt has been having poor sleep , unable to concentrate at work, on day of evaluation felt overwhelmed and having suicidal ideation on evaluation pt presenting with depressed mood and anxious affect, passive suicidal ideation with out plan, denied command hallucinations denied substance use Current Medications: Active Medications Generic Name Dose Route Start Last Admin Trade Name Freq PRN Reason Stop Dose Admin Acetaminophen 650 mg 07/13/18 14:10 Tylenol 325mg Tab PO Q4 PRN Pain, moderate (4-7) Al Hydrox/Mg Hydrox/Simethicone 30 ml 07/13/18 14:10 Maalox Plus 30 Ml PO Q4 PRN Dyspepsia Benztropine Mesylate 1 mg 07/13/18 22:00 Cogentin PO HS ENEIDA Diphenhydramine HCl 50 mg 07/13/18 14:10 Benadryl IM Q6 PRN Extrapyramidal S/S Unable PO Diphenhydramine HCl 50 mg 07/13/18 14:10 Benadryl PO Q6 PRN Extrapyramidal Symptoms Escitalopram Oxalate 10 mg 07/14/18 09:00 Lexapro PO DAILY ENEIDA Gabapentin 100 mg 07/13/18 17:00 Neurontin PO TID ENEIDA Haloperidol Lactate 5 mg 07/13/18 14:10 Haldol PO Q4 PRN Agitation Haloperidol Lactate 5 mg 07/13/18 14:10 Haldol IM Q4 PRN Agitation, Unable to Take PO Lorazepam 2 mg 07/13/18 14:10 Ativan IM Q4 PRN Anxiety/Agitation,Unable PO Lorazepam 1 mg 07/13/18 14:21 Ativan PO Q8 PRN Anxiety Magnesium Hydroxide 30 ml 07/13/18 14:10 Milk Of Magnesia PO HS PRN Constipation Risperidone 2 mg 07/13/18 22:00 Risperdal Tab PO HS ENEIDA Past Psychiatric History - Past Psychiatric History Explanation of prior treatment: multiple hospitalizations partial compliance History of ETOH/Drug Use: denied Pertinent Medical Hx (Current Medical&Sleep Prob, Allergies): Allergies Allergy/AdvReac Type Severity Reaction Status Date / Time No Known Allergies Allergy Verified 07/13/18 12:33 Gabapentin [Neurontin] 100 mg PO TID 30 Days #90 cap 02/13/18 risperiDONE [RisperDAL Tab] 3 mg PO HS 30 Days #30 tab 02/13/18 Divalproex [Depakote DR] 250 mg PO BID #60 tcp 04/09/18 fluPHENAZine [Prolixin] 10 mg PO BID #60 tab 04/09/18 Zolpidem [Ambien] 10 mg PO HS PRN #7 tab 05/02/18 Escitalopram [Lexapro] 20 mg PO DAILY 05/16/18 Metoprolol Tartrate [Lopressor] 50 mg PO DAILY 05/16/18 traZODone [Desyrel] 100 mg PO HS 05/16/18 Benztropine [Cogentin] 0.5 mg PO HS 30 Days #30 tab 05/23/18 Gabapentin [Neurontin] 200 mg PO TID 30 Days #180 cap 05/23/18 fluvoxaMINE [Luvox] 100 mg PO HS 30 Days #30 tab 05/23/18 risperiDONE [RisperDAL Tab] 2 mg PO HS 30 Days #30 tab 05/23/18 traZODone [Desyrel] 100 mg PO HS 30 Days #30 tab 05/23/18 Mental Status Examination - Personal Presentation Personal Presentation: Looks older than stated age Additional comments: unkempt - Affect Affect: Constricted, Depressed - Motor Activity Motor Activity: Psychomotor Retardation - Reliability in Providing Information Reliability in Providing Information: Poor, due to alteration in thoughts, Poor, due to altered mood - Speech Speech: Tangential - Mood Mood: Depressed, Anxious - Formal Thought Process Formal Thought Process: Circumstantial - Obsessions/Compulsions Obsessions: Yes - Cognitive Functions Orientation: Person, Place Sensorium: Alert Attention/Concentration: Easily distracted Abstract Thinking: [place] Judgement: Imparied, as evidence by: Poor judgement - Risk Risk: Suicidal, Diminished functioning - Strength & Assets Inventory Strength & Assets Inventory: Life experience - Limitations Additional comments: partial compliance DSM 5 DX - DSM 5 DSM 5 Diagnosis: schizoaffective disorder PTSD - Recommended/Plan of Treatment Treatment Recommendations and Plan of Treatment: START RISPERIDONE 2MG QHS NEURONTIN 100MG TID ATIVAN PRN AMBIEN 5MG QHS [facility] GROUP AND SUPPORTIVE THERAPY
--- NOTE | 2018-07-13 15:48 | PCM.BM ---
<Hilary Cotto - Last Filed: 07/13/18 15:46> Treatment Plan Problems - Problems identified on initial assessmt Anxiety Date Initiated: 07/13/18 Time Initiated: 15:47 Assessment reference: NA Status: Active Hopelessness/Helplessness Date Initiated: 07/13/18 Time Initiated: 15:48 Assessment reference: NA Status: Active Feelings ofWorthlessness Date Initiated: 07/13/18 Time Initiated: 15:49 Assessment reference: NA Status: Active Fear Date Initiated: 07/13/18 Time Initiated: 15:50 Assessment reference: NA Status: Active Treatment assets and liabiliti Patient Assests: cooperative, resourceful, self-reliant, ADL independent, negotiates basic needs Patient Liabilities: financial problems (Pt is unemployed) - Milieu Protocol Maintain good personal hygiene: daily Encourage regular showers, daily Remind patient to perform daily oral care, daily Assist patient to perform ADL's Maintain personal safety: every shift Educate patient to report safety concerns to staff, every shift Monitor environment for contraband/sharps Medication safety: Monitor for expected outcome, potential side effects: every shift, Assess barriers to learning: every shift, Assess readiness for medication education: every shift Milieu Narrative: START RISPERIDONE 2MG QHS NEURONTIN 100MG TID ATIVAN PRN AMBIEN 5MG QHS [facility] AND SUPPORTIVE THERAPY Discharge/Continuing Care - Treatment Team Participation Patient/Family/SO Statement: START RISPERIDONE 2MG QHS NEURONTIN 100MG TID ATIVAN PRN AMBIEN 5MG QHS [facility] AND SUPPORTIVE THERAPY <Leatha Hines - Last Filed: 07/16/18 14:26> <Velma Smith - Last Filed: 07/17/18 08:52> - Diagnosis (1) Schizoaffective disorder Status: Acute Interventions: Medication management, Individual and group therapy, Psychoeducation 07/17/18 08:52
--- NOTE | 2018-07-13 16:11 | CP.PCM.CON ---
History of Present Illness - History of Present Illness History of Present Illness: 33 yo male with history of schizoaffective DO and PTSD admitted to psyche unit because of suicidal ideation Review of Systems - Review of Systems All systems: reviewed and no additional remarkable complaints except (aside from those mentioned above, 12 point system review were negative by me) Past Patient History - Infectious Disease Hx of Infectious Diseases: None - Tetanus Immunizations Tetanus Immunization: Unknown - Past Social History Smoking Status: Current Some Days Smoker Chewing Tobacco Use: No Cigar Use: No Alcohol: None Drugs: Denies - CARDIAC Hx Hypertension: Yes - PULMONARY Hx Tuberculosis: No - NEUROLOGICAL Hx Seizures: No - HEENT Hx HEENT Problems: No - RENAL Hx Chronic Kidney Disease: No - ENDOCRINE/METABOLIC Hx Endocrine Disorders: No - HEMATOLOGICAL/ONCOLOGICAL Hx Human Immunodeficiency Virus (HIV): No - INTEGUMENTARY Hx Dermatological Problems: No - MUSCULOSKELETAL/RHEUMATOLOGICAL Hx Fractures: Yes (left shoulder 3 months ago) - GASTROINTESTINAL Hx Gastrointestinal Disorders: No - GENITOURINARY/GYNECOLOGICAL Hx Sexually Transmitted Disorders: No - PSYCHIATRIC Hx Anxiety: Yes Hx Depression: Yes Hx Substance Use: No - SURGICAL HISTORY Hx Surgeries: No - ANESTHESIA Hx Anesthesia: No Hx Anesthesia Reactions: No Hx Malignant Hyperthermia: No Meds Allergies/Adverse Reactions: Allergies Allergy/AdvReac Type Severity Reaction Status Date / Time No Known Allergies Allergy Verified 07/13/18 12:33 - Medications Medications: Current Medications Acetaminophen (Tylenol 325mg Tab) 650 mg PO Q4 PRN PRN Reason: Pain, moderate (4-7) Al Hydrox/Mg Hydrox/Simethicone (Maalox Plus 30 Ml) 30 ml PO Q4 PRN PRN Reason: Dyspepsia Benztropine Mesylate (Cogentin) 1 mg PO HS ENEIDA Diphenhydramine HCl (Benadryl) 50 mg IM Q6 PRN PRN Reason: Extrapyramidal S/S Unable PO Diphenhydramine HCl (Benadryl) 50 mg PO Q6 PRN PRN Reason: Extrapyramidal Symptoms Escitalopram Oxalate (Lexapro) 10 mg PO DAILY ENEIDA Gabapentin (Neurontin) 100 mg PO TID ENEIDA Haloperidol Lactate (Haldol) 5 mg PO Q4 PRN PRN Reason: Agitation Haloperidol Lactate (Haldol) 5 mg IM Q4 PRN PRN Reason: Agitation, Unable to Take PO Lorazepam (Ativan) 2 mg IM Q4 PRN PRN Reason: Anxiety/Agitation,Unable PO Lorazepam (Ativan) 1 mg PO Q8 PRN PRN Reason: Anxiety Magnesium Hydroxide (Milk Of Magnesia) 30 ml PO HS PRN PRN Reason: Constipation Risperidone (Risperdal Tab) 2 mg PO HS ENEIDA Zolpidem Tartrate (Ambien) 5 mg PO HS PRN PRN Reason: Insomnia Physical Exam - Constitutional Appears: No Acute Distress - Head Exam Head Exam: ATRAUMATIC - Eye Exam Eye Exam: absent: Scleral icterus - ENT Exam ENT Exam: Mucous Membranes Moist - Neck Exam Neck exam: Negative for: Meningismus - Respiratory Exam Respiratory Exam: absent: Rales, Rhonchi, Wheezes, Respiratory Distress - Cardiovascular Exam Cardiovascular Exam: REGULAR RHYTHM, +S1, +S2 - GI/Abdominal Exam GI & Abdominal Exam: Soft. absent: Tenderness - Rectal Exam Rectal Exam: Deferred - Extremities Exam Extremities exam: Negative for: pedal edema - Back Exam Back exam: NORMAL INSPECTION - Neurological Exam Neurological exam: Alert, Oriented x3 - Psychiatric Exam Psychiatric exam: Normal Affect - Skin Skin Exam: Dry, Intact Results - Vital Signs Recent Vital Signs: Last Vital Signs Temp 98.4 F 07/13/18 13:23 Pulse 71 07/13/18 13:23 Resp 18 07/13/18 13:23 BP 138/72 07/13/18 13:23 Pulse Ox 97 07/13/18 13:23 Assessment & Plan (1) Suicidal ideation Status: Acute Comment: psyche is managing
[2018-07-14 09:00] LABS: T4 8.35 ug/dl (5.5-11.0)
--- NOTE | 2018-07-14 10:12 | PCM.PYCHPN ---
Psychiatric Progress Note - Psychiatric Progress Note Patient seen today, length of contact: Pt evaluated, case discussed w/ team, chart reviewed Patient Chief Complaint: "I keep seeing blood." Problems Identified/Issues Discussed: Patient continues to be depressed, anxious and experiencing visual hallucinations of blood on the wall and people. He reports feeling disturbed by these hallucinations and is not able to sleep well at night. No adverse effects to medications reported. Medication Change: Yes (Increase Risperdal) Medical Record Reviewed: Yes Consults ordered or reviewed: Medicine consult Mental Status Examination - Cognitive Function Orientation: Person, Place, Situation, Time Memory: Intact Decription of patient's judgement and insights: Poor I/J - Mood Mood: Depressed, Anxious - Affect Affect: Constricted, Depressed - Formal Thought Process Formal Thought Process: Hallucinations, Circumstantial Psychotic Thoughts and Behaviors: +Visual hallucinations - Suicidal Ideation Suicidal Ideation: No - Homicidal Ideation Homicidal Ideation: No Goal/Treatment Plan - Goal/Treatment Plan Need for Continued Stay: Remain at risks for inpatient hospitalization, Discha rge may exacerbated symptoms Progress Toward Problem(s) and Goals/Treatment Plan: Schizoaffective Disorder; PTSD -Continue Lexapro 10 mg PO Daily -Continue Neurontin 100 mg PO TID -Increase Risperdal to 3 mg PO HS -Continue Cogentin 1 mg PO HS -Individual and group therapy -Medicine consult -Psychoeducation -Disposition planning
--- NOTE | 2018-07-15 08:38 | PCM.PYCHPN ---
Psychiatric Progress Note - Psychiatric Progress Note Patient seen today, length of contact: Pt evaluated, case discussed w/ team, chart reviewed Patient Chief Complaint: "I keep seeing blood." Problems Identified/Issues Discussed: Patient reports that he continued to see VH of blood and people yesterday, but denies current VH. He continues to report feeling anxious and reports sleep and appetite disturbances. No adverse effects to medications reported. Medication Change: No Medical Record Reviewed: Yes Consults ordered or reviewed: Medicine consult Mental Status Examination - Cognitive Function Orientation: Person, Place, Situation, Time Memory: Intact Decription of patient's judgement and insights: Poor I/J - Mood Mood: Anxious - Affect Affect: Constricted - Formal Thought Process Formal Thought Process: Circumstantial Psychotic Thoughts and Behaviors: No current VH; reports VH yesterday - Suicidal Ideation Suicidal Ideation: No - Homicidal Ideation Homicidal Ideation: No Goal/Treatment Plan - Goal/Treatment Plan Need for Continued Stay: Remain at risks for inpatient hospitalization, Discharge may exacerbated symptoms Progress Toward Problem(s) and Goals/Treatment Plan: Schizoaffective Disorder; PTSD -Continue Lexapro 10 mg PO Daily -Continue Neurontin 100 mg PO TID -Continue Risperdal 3 mg PO HS -Continue Cogentin 1 mg PO HS -Individual and group therapy -Medicine consult -Psychoeducation -Disposition planning
[2018-07-16] MEDS ORDERED: Influenza Vaccine (5 YR UP)/PF 60 MCG/0.5 ML SYR IM ONE (11:00)
--- NOTE | 2018-07-16 11:13 | PCM.PYCHPN ---
Psychiatric Progress Note - Psychiatric Progress Note Patient seen today, length of contact: Pt evaluated, case discussed w/ team, chart reviewed Patient Chief Complaint: Depression/Anxiety Problems Identified/Issues Discussed: Patient continues to report feeling depressed and anxious w/ panic attacks. He denies acute AH/VH. He continues to report difficulty sleeping at night. No adverse effects to medications reported. Medication Change: No Medical Record Reviewed: Yes Consults ordered or reviewed: Medicine consult Mental Status Examination - Cognitive Function Orientation: Person, Place, Situation, Time Memory: Intact Attention: WNL Association: WNL Fund of Knowledge: [facility] Decription of patient's judgement and insights: Improving I/J - Mood Mood: Depressed, Anxious - Affect Affect: Constricted - Speech Speech: Appropriate - Formal Thought Process Formal Thought Process: Circumstantial Psychotic Thoughts and Behaviors: Denies current AH/VH - Suicidal Ideation Suicidal Ideation: No - Homicidal Ideation Homicidal Ideation: No Goal/Treatment Plan - Goal/Treatment Plan Need for Continued Stay: Remain at risks for inpatient hospitalization, Severe depression anxiety, Discharge may exacerbated symptoms Progress Toward Problem(s) and Goals/Treatment Plan: Schizoaffective Disorder; PTSD -Continue Lexapro 10 mg PO Daily -Stop Neurontin -Start Klonopin 0.5 mg PO BID -Continue Risperdal 3 mg PO HS -Continue Cogentin 1 mg PO HS -Individual and group therapy -Medicine consult -Psychoeducation -Disposition planning
--- NOTE | 2018-07-17 08:55 | PCM.PYCHPN ---
Psychiatric Progress Note - Psychiatric Progress Note Patient seen today, length of contact: Pt evaluated, case discussed w/ team, chart reviewed Patient Chief Complaint: "I'm feeling better." Problems Identified/Issues Discussed: Patient reports that his mood is improving. His affect has brightened. He continues to report some difficulty sleeping at night. He denies psychotic symptoms (no AH/VH/paranoia/delusions). No SI/HI. He submitted a 48 hr letter requesting to be discharged from the hospital. No adverse effects to medications reported. Medication Change: No Medical Record Reviewed: Yes Consults ordered or reviewed: Medicine consult Mental Status Examination - Cognitive Function Orientation: Person, Place, Situation, Time Memory: Intact Attention: WNL Association: [facility] Fund of Knowledge: [facility] Decription of patient's judgement and insights: Good I/J - Mood Mood: Anxious - Affect Affect: Constricted - Speech Speech: Appropriate - Formal Thought Process Formal Thought Process: No Impairment Psychotic Thoughts and Behaviors: No AH/VH/paranoia/delusions - Suicidal Ideation Suicidal Ideation: No - Homicidal Ideation Homicidal Ideation: No Goal/Treatment Plan - Goal/Treatment Plan Need for Continued Stay: Discharge may exacerbated symptoms Progress Toward Problem(s) and Goals/Treatment Plan: Schizoaffective Disorder; PTSD; patient is improving clinically; he submitted a 48 hr letter requesting to be discharged; will likely discharge tomorrow as patient does not meet criteria for involuntary psychiatric commitment at this time. -Continue Lexapro 10 mg PO Daily -Continue Klonopin 0.5 mg PO BID -Continue Risperdal 3 mg PO HS -Continue Cogentin 1 mg PO HS -Individual and group therapy -Medicine consult -Psychoeducation -Disposition planning Estimated Date of D/C: 07/18/18
[2018-07-18 06:23] VITALS: BP 118/79; PULSE 71; RESP 20; TEMP 98.3
--- NOTE | 2018-07-18 08:24 | PCM.PYCHDC ---
Mental Status Examination - Mental Status Examination Orientation: Person, Place, Situation, Time Memory: Intact Mood: Neutral Affect: Broad Speech: Appropriate Attention: WNL Concentration: WNL Association: WNL Fund of Knowledge: WNL Formal Thought Process: No Impairment Description of patient's judgement and insight: Good I/J Psychotic Thoughts and Behaviors: No AH/VH/paranoia/delusions Suicidal Ideation: No Current Homicidal Ideation?: No Discharge Summary - Discharge Note Reason for Hospitalization: As per initial HPI note: pt is 33ys old male with previous diagnosis of schizoaffective disorder , PTSD , reportedly compliant with medications and follow up presented to ER with suicidal ideation, pt reported for past two weeks has been feeling increasingly anxious having repetitive visions of bad scenes including blood, pt has been having poor sleep , unable to concentrate at work, on day of evaluation felt overwhelmed and having suicidal ideation on evaluation pt presenting with depressed mood and anxious affect, passive suicidal ideation with out plan, denied command hallucinations denied substance use Consultations:: List each consultation separately and include: 1. Reason for request. 2. Findings. 3. Follow-up Consultations: Medicine consult Summary of Hospital Course include:: 1. Description of specific treatment plan utilized for patients during their course of treatmen. 2. Summarize the time- course for resolution of acute symptoms and/or regressed behaviors. 3. Describe issues identified and worked on during hospitalization. 4. Describe medication utilized. 5. Describe medical problems identified and treated. 6. Reassessment of suicide risk Summary of Hospital Course: Patient was admitted to the psychiatry unit. Individual and group therapy were provided. Patient was stabilized on Lexapro 10 mg PO Daily, Risperdal 3 mg mg PO HS, Trazodone 100 mg PO HS, Klonopin 0.5 mg PO BID, Cogentin 1 mg PO HS. He denies acute depression/anxiety/AH/VH/SI/HI/paranoia/delusions. He submitted a 48 hr letter requesting to be discharged and will be discharged as he currently does not meet criteria for involuntary psychiatric commitment. Patient is psychiatrically stable for discharge at this time. Psychoeducation provided on the importance of compliance with treatment, medications and outpatient follow- up. - Diagnosis (1) Schizoaffective disorder Current Visit: No Status: Chronic - Final Diagnosis (DSM 5) Condition upon Discharge: STABLE DSM 5: Schizoaffective Disorder Disposition: HOME/ ROUTINE Follow-up Treatment Plan: Schizoaffective Disorder; PTSD; patient is psychiatrically stable for discharge at this time. -Continue Lexapro 10 mg PO Daily -Continue Klonopin 0.5 mg PO BID -Continue Risperdal 3 mg PO HS -Continue Cogentin 1 mg PO HS -Individual and group therapy -Medicine consult -Psychoeducation Prescriptions/Medication Reconciliation: Benztropine [Cogentin] 1 mg PO HS #30 tab clonazePAM [Klonopin] 0.5 mg PO BID #60 tab Escitalopram [Lexapro] 10 mg PO DAILY #30 tab risperiDONE [RisperDAL Tab] 3 mg PO HS #30 tab traZODone [Desyrel] 100 mg PO HS #30 tab - Smoking Cessation Smoking Cessation Medication prescribed: No Reason for not providing: Not indicated - Antipsychotic Medications Pt discharged on 2 or more routine antipsychotic medications: No
== END 2018-07-18 09:45 | disposition home or self-care (01) | DRG 750 ==
LOC: H.ER 12:22 → H.PSYCH 13:00 → H.STEP 07-15 20:23
PROVIDERS: ADMIT Psychiatry & Neurology Psychiatry; ATTEND Psychiatry & Neurology Psychiatry
PROC: GZHZZZZ Group Psychotherapy (ICD-10-PCS; principal; 2018-07-13)
PROC: GZ58ZZZ Individual Psychotherapy, Cognitive-Behavioral (ICD-10-PCS; 2018-07-13)
PROC: GZ56ZZZ Individual Psychotherapy, Supportive (ICD-10-PCS; 2018-07-13)
PROC: 3E02340 Introduction of Influenza Vaccine into Muscle, Percutaneous Approach (ICD-10-PCS; 2018-07-16)
DX: F25.9 Schizoaffective disorder, unspecified (principal); R45.851 Suicidal ideations; I10 Essential (primary) hypertension; F43.10 Post-traumatic stress disorder, unspecified; F17.200 Nicotine dependence, unspecified, uncomplicated; Z23 Encounter for immunization